=== PATIENT | female | born 1995 | race African-American/Black ===

== ENCOUNTER 2017-01-04 08:50 | Emergency (ER) | payer OTHER ==
[~2017-01-04] VITALS: Ht 175.3 cm; Wt 86.2 kg
[~2017-01-04 08:50] MED LIST: AZIT250T PO; BENZ100C PO; CETI1TAB7 PO; LORA10TA68 PO; NAPR500T PO; PRED50TA PO; PROAIR HFA8.5 GM INH; PROAIR RESPICL90 MCG IH
[2017-01-04 09:03] VITALS: BP 129/73
[2017-01-04] MEDS ORDERED: METOCLOPRAMIDE 10 MG TABLET. PO ONE (09:45)
[2017-01-04] MEDS ORDERED: predniSONE 10 MG TABLET PO ONE (09:45)
[2017-01-04] MEDS ORDERED: ALBUTEROL SULFATE 2.5 MG/3 ML NEBU. INH ONE (09:45)
[2017-01-04] MEDS ORDERED: PRED50TA PO (10:04)
[2017-01-04] MEDS ORDERED: ALBU0.63 NEB (10:04)
[2017-01-04] MEDS ORDERED: VENTOLIN HFA18 GM INH (10:04)
--- NOTE | 2017-01-04 10:04 | PHYS DOC ---
Past Medical History Past Medical History: Asthma Past Surgical History: No Surgical History Alcohol Use: None Drug Use: None Adult General Chief Complaint Chief Complaint: COUGH HPI HPI Patient is a 21 year old female who presents with asthma exacerbation. The patient reports 2 day history of cough productive of yellow sputum, wheezing, shortness of breath, 1 episode posttussive emesis. She reports generalized headache not sudden in onset & not the worst headache of her life. She is 5 months , denies abdominal pain, vaginal bleeding, loss of fluid, dysuria. Her OB is Dr. Ang. She has history of asthma with previous hospital admissions including ICU admission without intubation, has been using inhaler at home but states it is proair which is less helpful than ventolin which she used previously. Nonsmoker. Review of Systems Review of Systems Constitutional: Denies fever or chills Eyes: Denies change in visual acuity HENT: Denies nasal congestion or sore throat Respiratory: Reports cough & shortness of breath Cardiovascular: Denies chest pain or edema GI: Denies abdominal pain, nausea, reports vomiting : Denies vaginal bleeding Musculoskeletal: Denies back pain or joint pain Integument: Denies rash Neurologic: Reports headache, denies focal weakness or sensory changes Current Medications Current Medications Current Medications Medications (Trade) Dose Ordered Sig/Felipe Start Time Stop Time Status Last Admin Dose Admin Albuterol Sulfate (Ventolin Neb Soln) 5 mg 1X ONCE 01/04/17 09:45 01/04/17 09:46 DC 01/04/17 09:45 5 MG Metoclopramide HCl (Reglan) 10 mg 1X ONCE 01/04/17 09:45 01/04/17 09:46 DC 01/04/17 09:21 10 MG Prednisone (Prednisone) 50 mg 1X ONCE 01/04/17 09:45 01/04/17 09:46 DC 01/04/17 09:21 50 MG Allergies Allergies Allergies Coded Allergies Type Severity Reaction Last Updated Verified No Known Drug Allergies 02/23/16 No Physical Exam Physical Exam Constitutional: Well developed, well nourished, no acute distress, non-toxic appearance. HENT: Normocephalic, atraumatic, bilateral external ears normal, oropharynx moist, no tonsillar enlargement/exudate, nose normal. Eyes: PERRLA, EOMI, conjunctiva normal, no discharge. Neck: supple, no stridor. no meningismus Cardiovascular: RRR, no murmurs, no edema. Lungs & Thorax: breath sounds in all lung [place], tight with expiratory wheezes , no respiratory distress, speaking in complete sentences, frequent dry cough. Abdomen: soft, nontender, nondistended. Skin: Warm, dry, no erythema, no rash. Back: No tenderness. Extremities: No tenderness, no edema. no calf tenderness or swelling. Neurologic: Alert and oriented X 3, no focal deficits noted. Psychologic: Affect normal, judgement normal, mood normal. Current Patient Data Vital Signs Vital Signs Date Time Temp Pulse Resp B/P (MAP) Pulse Ox O2 Delivery O2 Flow Rate FiO2 01/04/17 09:03 98.0 93 24 97 Room Air 98.0 EKG EKG [] Radiology/Procedures Radiology/Procedures [] Course & Med Decision Making Course & Med Decision Making Pertinent Labs and Imaging studies reviewed. (See chart for details) The patient presents with asthma exacerbation in . She has normal oxygen saturation, no distress. Discussed risks/benefits with patient, gave prednisone here. I ordered albuterol inhaler but was informed that there was a miscommunication with the respiratory therapist & the patient left after prolonged wait for albuterol, without receiving breathing treatments. She was stable throughout her visit. I had given RN paperwork including prednisone, ventolin, & albuterol neb refill prescriptions & discharge instructions, & these were given to the patient with instructions to continue breathing treatments, tylenol for pain or fever, follow up with Dr. Ang as scheduled this week. Come back for severe shortness of breath or chest pain, or any otherwise worsening condition. She was in stable condition at time of departure although did not receive the treatment recommended. [] Dragon Disclaimer Dragon Disclaimer This electronic medical record was generated, in whole or in part, using a voice recognition dictation system. Departure Departure Impression: Primary Impression: Asthma exacerbation Disposition: HOME, SELF-CARE Condition: IMPROVED Referrals: NO PCP (PCP) RASHAD ANG MD Patient Instructions: Asthma, Adult, [id number] Additional Instructions: You were seen in the emergency department today for asthma. Please continue breathing treatments at home. Safety of prednisone is not fully understood in , but based on symptoms here it is recommended to take as prescribed. Check with Dr. Ang this week if you should continue to take. I keep scheduled follow-up appointment this week. Return to the emergency department for high fever, severe shortness of breath or chest pain, any otherwise worsening condition. Scripts Albuterol Sulfate (ALBUTEROL SULFATE NEB SOLN) 0.63 Mg/3 Ml Vial.neb 1 VIAL NEB QID, #150 ML 1 Refill Prov: STEFANI VITALE MD 01/04/17 Albuterol Sulfate (VENTOLIN HFA INHALER) 18 Gm Hfa.aer.ad 2 PUFF INH Q4HRS for FOR ASTHMA, #1 INHALER 0 Refills Prov: STEFANI VITALE MD 01/04/17 Prednisone (PREDNISONE) 50 Mg Tablet 1 TAB PO DAILY, #5 TAB Prov: STEFANI VITALE MD 01/04/17 STEFANI VITALE MD Jan 04, 2017 10:04
== END 2017-01-04 10:16 | disposition home or self-care (01) ==
LOC: ER 08:50
DX: O99.512 Diseases of the respiratory system complicating pregnancy, second trimester (principal); J45.901 Unspecified asthma with (acute) exacerbation; Z3A.20 20 weeks gestation of pregnancy
CPT/HCPCS: 94640; 99283; J7512; J8597

== ENCOUNTER 2017-01-11 12:45 | Emergency (ER) | payer OTHER ==
[~2017-01-11] VITALS: Ht 167.6 cm; Wt 92.5 kg
[~2017-01-11 12:45] MED LIST changes: +ALBU0.63 NEB; +VENTOLIN HFA18 GM INH
[2017-01-11 14:14] LABS: BILIRUBIN,URINE NEGATIVE (NEG); GLUCOSE,URINE NEGATIVE (NEG); NITRITE,URINE POSITIVE (NEG); PROTEIN,URINE 30 mg/dL (NEG-TRACE)
[2017-01-11] MEDS ORDERED: ACETAMINOPHEN 500 MG TABLET PO ONE (14:15)
[2017-01-11 14:41] LABS: BACTERIA,URINE MANY /HPF (0-FEW); RBC,URINE 0 /HPF (0-2); SQUAMOUS EPITHELIAL CELL,UR MOD /LPF
[2017-01-11] MEDS ORDERED: NITROFURANTOIN MONOHYD/M-CRYST 100 MG CAPSULE. PO ONE (14:45)
--- NOTE | 2017-01-11 14:53 | RAD ---
OB ULTRASOUND, limited Clinical Indication: abdominal pain 19 weeks Comparison: None. Technique: Multiple grayscale images, color Doppler, and M-mode images of the uterus are obtained. Findings: There is a single intrauterine gestation in vertex presentation. The placenta is anterior in location without evidence of placenta previa. The amount of amniotic fluid is probably appropriate. Amniotic fluid index is not measured. Cervical length is 4.1 cm. Biometrical data is as follows: BPD = 4.9 cm for 20 weeks 6 days. HC = 18.1 cm for 20 weeks 4 days. AC = 14.5 cm for 19 weeks 6 days. FL = 3.3 cm for 20 weeks 3 days. HC/AC ratio = 1.25. Overall, the estimated sonographic gestational age is 20 weeks and 3 days for an estimated date of delivery of May 28, 2017. The estimated date of delivery provided by the last menstrual period is May 26, 2017. Estimated weight is 338 +/- 50 grams. The estimated heart rate is 152 beats per minute. A complete anatomic survey is not performed. IMPRESSION: Single live intrauterine gestation with estimated sonographic gestational age of 20 weeks and 3 days.
[2017-01-11] MEDS ORDERED: NITR100C62 PO (15:11)
--- NOTE | 2017-01-11 15:11 | PHYS DOC ---
Past Medical History Past Medical History: Asthma Past Surgical History: No Surgical History Alcohol Use: None Drug Use: None Adult General Chief Complaint Chief Complaint: ABDOMINAL PAIN IN HPI HPI Patient is a 21 year old female who presents with abdominal pain in . Patient states she is 19w2d by dates with lower abdominal pain that feels like cramps or contractions. She reports intermittent pains since yesterday. She denies fevers/chills, nausea, vomiting, diarrhea, dysuria, hematuria, vaginal bleeding/discharge, loss of fluid. She denies headache, vision changes, lower extremity edema. Her OB is Dr. Ang. Seen by me last week for asthma exacerbation & states her breathing has improved. She had a follow up appointment with DR. Ang 2 days ago. Review of Systems Review of Systems Constitutional: Denies fever or chills Eyes: Denies change in visual acuity HENT: Denies nasal congestion or sore throat Respiratory: Denies cough or shortness of breath Cardiovascular: Denies chest pain or edema GI: Reports abdominal pain, denies nausea, vomiting, or diarrhea : Denies dysuria or hematuria Musculoskeletal: Denies back pain or joint pain Integument: Denies rash or skin lesions Neurologic: Denies headache, focal weakness or sensory changes Current Medications Current Medications Current Medications Medications (Trade) Dose Ordered Sig/Felipe Start Time Stop Time Status Last Admin Dose Admin Acetaminophen (Tylenol) 500 mg 1X ONCE 01/11/17 14:15 01/11/17 14:16 DC 01/11/17 14:09 500 MG Nitrofurantoin Macrocrystals (Macrobid) 100 mg 1X ONCE 01/11/17 14:45 01/11/17 14:46 DC 01/11/17 14:47 100 MG Allergies Allergies Allergies Coded Allergies Type Severity Reaction Last Updated Verified No Known Drug Allergies 02/23/16 No Physical Exam Physical Exam Constitutional: obese, no acute distress, non-toxic appearance. HENT: Normocephalic, atraumatic, bilateral external ears normal, oropharynx moist, nose normal. Eyes: conjunctiva normal, no discharge. Neck: supple, no stridor. Cardiovascular: RRR, no murmurs, no edema. Lungs & Thorax: LCTAB, no wheezing, no respiratory distress. Abdomen: soft, nontender, gravid uterus, mild suprapubic tenderness without rebound/guarding, no masses. Skin: Warm, dry, no erythema, no rash. Back: No CVA tenderness. Extremities: No tenderness, no edema. Neurologic: Alert and oriented X 3, no focal deficits noted. Psychologic: Affect normal, judgement normal, mood normal. Current Patient Data Vital Signs Vital Signs Date Time Temp Pulse Resp B/P (MAP) Pulse Ox O2 Delivery O2 Flow Rate FiO2 01/11/17 15:20 98.0 70 14 128/87 (101) 98 Room Air 98.0 Lab Values Laboratory Tests Test 01/11/17 13:55 Urine Collection Type Unknown Urine Color [place]ba Urine Clarity Cloudy Urine pH 6.0 Urine Specific [place] >=1.030 Urine Protein 30 mg/dL (NEG-TRACE) Urine Glucose (UA) Negative mg/dL (NEG) Urine Ketones (Stick) 40 mg/dL (NEG) Urine Blood Trace (NEG) Urine Nitrite Positive (NEG) Urine Bilirubin Negative (NEG) Urine Urobilinogen Dipstick 1.0 mg/dL (0.2 mg/dL) Urine Leukocyte Esterase Small (NEG) Urine RBC 0 /HPF (0-2) Urine WBC 5-10 /HPF (0-4) Urine Squamous Epithelial Cells Mod /LPF Urine Bacteria Many /HPF (0-FEW) Urine Mucus Mod /LPF EKG EKG [] Radiology/Procedures Radiology/Procedures PROCEDURE: OB LIMITED OB ULTRASOUND, limited Clinical Indication: abdominal pain 19 weeks Comparison: None. Technique: Multiple grayscale images, color Doppler, and M-mode images of the uterus are obtained. Findings: There is a single intrauterine gestation in vertex presentation. The placenta is anterior in location without evidence of placenta previa. The amount of amniotic fluid is probably appropriate. Amniotic fluid index is not measured. Cervical length is 4.1 cm. Biometrical data is as follows: BPD = 4.9 cm for 20 weeks 6 days. HC = 18.1 cm for 20 weeks 4 days. AC = 14.5 cm for 19 weeks 6 days. FL = 3.3 cm for 20 weeks 3 days. HC/AC ratio = 1.25. Overall, the estimated sonographic gestational age is 20 weeks and 3 days for an estimated date of delivery of May 28, 2017. The estimated date of delivery provided by the last menstrual period is May 26, 2017. Estimated weight is 338 +/- 50 grams. The estimated heart rate is 152 beats per minute. A complete anatomic survey is not performed. IMPRESSION: Single live intrauterine gestation with estimated sonographic gestational age of 20 weeks and 3 days. DICTATED and SIGNED BY: DOUGLAS KUMAR MD DATE: 01/11/17 1447[] Course & Med Decision Making Course & Med Decision Making Pertinent Labs and Imaging studies reviewed. (See chart for details) The patient presents with abdominal pain in . BP initially elevated, recheck showed 120s systolic with diastolic 80s. She had abdominal pain but no headache or edema. She has minimal tenderness on exam. Gave tylenol. UA shows UTI & she does have proteinuria. US shows IUP with FHT, gestational age over 20 weeks. Original EDC was based on patient's verbal report of due date. Recommended transfer to L&D for further monitoring of the fetus. The patient is being discharged upstairs for monitoring. Recommend rest, PO hydration, drink more fluids to prevent likely [place] contractions. Take tylenol for pain & take macrobid as prescribed. Follow up with Dr. Ang next week. Come back for high fever, severe pain, uncontrolled vomiting, symptoms of labor or preeclampsia, or any otherwise worsening condition. [] Dragon Disclaimer Dragon Disclaimer This electronic medical record was generated, in whole or in part, using a voice recognition dictation system. Departure Departure Impression: Primary Impression: UTI (lower urinary tract infection) Additional Impressions: related condition in second trimester Abdominal pain during Disposition: HOME, SELF-CARE Condition: STABLE Referrals: NO PCP (PCP) RASHAD ANG MD Patient Instructions: Abdominal Pain During , [id number], Urinary Tract Infection, [id number] Additional Instructions: You were seen in the emergency department today for abdominal pain and . You have a urinary tract infection. Please take the prescribed antibiotic and be sure to drink fluids to stay hydrated. Take Tylenol as needed for pain. You are being transferred to the OB department for further monitoring of your baby. Scripts Nitrofurantoin Monohyd/M-Cryst (MACROBID 100 MG CAPSULE) 100 Mg Capsule 1 CAP PO BID, #13 CAP next dose AM of 01/12, first dose given in ED afternoon of 01/11 Prov: STEFANI VITALE MD 01/11/17 Problem Qualifiers STEFANI VITALE MD Jan 11, 2017 15:11
[2017-01-11 15:20] VITALS: BP 128/87
== END 2017-01-11 15:23 | disposition home or self-care (01) ==
LOC: ER 12:45
DX: O23.42 Unspecified infection of urinary tract in pregnancy, second trimester (principal); R10.9 Unspecified abdominal pain; J45.909 Unspecified asthma, uncomplicated; Z3A.20 20 weeks gestation of pregnancy
CPT/HCPCS: 76815; 81001; 87086; 99285-25

== ENCOUNTER 2017-01-11 15:26 | Observation (INO) | payer OTHER ==
[2017-01-11 15:20] VITALS: BP 128/87
[~2017-01-11 15:26] MED LIST changes: +NITR100C62 PO
[2017-01-11] MEDS ORDERED: IV RINGERS,LACTATED 1000ML 1,000 ML IV SCH (15:54)
== END 2017-01-11 16:00 | disposition home or self-care (01) ==
LOC: 3 SO LND 15:26
PROVIDERS: ADMIT Specialist; ATTEND Specialist
DX: O23.42 Unspecified infection of urinary tract in pregnancy, second trimester (principal); Z3A.19 19 weeks gestation of pregnancy
CPT/HCPCS: G0378; G0379

== ENCOUNTER 2017-01-15 11:10 | Emergency (ER) | payer OTHER ==
[~2017-01-15] VITALS: Ht 167.6 cm; Wt 92.5 kg
[2017-01-15 11:18] VITALS: BP 138/102
[2017-01-15] MEDS ORDERED: IPRATRPIUM/ALBUTEROL 0.5/2.5MG 3 ML NEBU. NEB ONE (11:45)
[2017-01-15] MEDS ORDERED: predniSONE 20 MG TABLET PO ONE (11:45)
[2017-01-15] MEDS ORDERED: PROAIR RESPICL90 MCG IH (12:23)
[2017-01-15] MEDS ORDERED: ALBU1.25 NEB (12:23)
[2017-01-15] MEDS ORDERED: PRED50TA PO (12:23)
--- NOTE | 2017-01-15 12:23 | PHYS DOC ---
Past Medical History Past Medical History: Asthma Past Surgical History: No Surgical History Alcohol Use: None Drug Use: None Adult General Chief Complaint Chief Complaint: ASTHMA HPI HPI Patient is a 21 year old female with history of asthma currently 5 months who presents today with complaints of shortness of breath due to asthma and wheezing that began last night. Patient states she tried using her nebulizer treatments with no relief. Patient is a 2 para 1. Patient denies any abdominal pain vaginal bleeding urgency frequency or dysuria. Review of Systems Review of Systems Constitutional: Denies fever or chills [] Eyes: Denies change in visual acuity, redness, or eye pain [] HENT: Denies nasal congestion or sore throat [] Respiratory: Shortness of breath and wheezing Cardiovascular: No additional information not addressed in HPI [] GI: Denies abdominal pain, nausea, vomiting, bloody stools or diarrhea [] : Denies dysuria or hematuria [] Musculoskeletal: Denies back pain or joint pain [] Integument: Denies rash or skin lesions [] Neurologic: Denies headache, focal weakness or sensory changes [] Endocrine: Denies polyuria or polydipsia [] Current Medications Current Medications Current Medications Medications (Trade) Dose Ordered Sig/Felipe Start Time Stop Time Status Last Admin Dose Admin Albuterol/ Ipratropium (Duoneb) 3 ml 1X ONCE 01/15/17 11:45 01/15/17 11:46 DC 01/15/17 11:42 3 ML Prednisone (Prednisone) 60 mg 1X ONCE 01/15/17 11:45 01/15/17 11:46 DC 01/15/17 11:56 60 MG Allergies Allergies Allergies Coded Allergies Type Severity Reaction Last Updated Verified No Known Drug Allergies 02/23/16 No Physical Exam Physical Exam Constitutional: Well developed, well nourished, no acute distress, non-toxic appearance. [] HENT: Normocephalic, atraumatic, bilateral external ears normal, oropharynx moist, no oral exudates, nose normal. [] Eyes: PERRLA, EOMI, conjunctiva normal, no discharge. [] Neck: Normal range of motion, no tenderness, supple, no stridor. [] Cardiovascular:Heart rate regular rhythm, no murmur [] Lungs & Thorax: Diffuse wheezing throughout her lung bases. Abdomen: Gravid abdomen. Bowel sounds normal, soft, no tenderness, no masses, no pulsatile masses. [] Skin: Warm, dry, no erythema, no rash. [] Back: No tenderness, no CVA tenderness. [] Extremities: No tenderness, no cyanosis, no clubbing, ROM intact, no edema. [] Neurologic: Alert and oriented X 3, normal motor function, normal sensory function, no focal deficits noted. [] Psychologic: Affect normal, judgement normal, mood normal. [] Current Patient Data Vital Signs Vital Signs Date Time Temp Pulse Resp B/P (MAP) Pulse Ox O2 Delivery O2 Flow Rate FiO2 01/15/17 11:43 97 Room Air 01/15/17 11:18 98.4 111 24 98.4 EKG EKG [] Radiology/Procedures Radiology/Procedures [] Course & Med Decision Making Course & Med Decision Making Pertinent Labs and Imaging studies reviewed. (See chart for details) This is a 5 month female patient 2 para 1 who presents today with wheezing and shortness of breath due to asthma that began last night. Patient was given a DuoNeb treatment and prednisone in the ED. Her lungs have cleared up. She is back to her baseline. We provided her prescriptions for albuterol inhaler as well as nebulizer treatments. She was discharged with prednisone for 4 more days. We recommended she follows up with her OB as well as PCP as soon as possible. She is provided return precautions and discharged in stable condition. Dragon Disclaimer Dragon Disclaimer This electronic medical record was generated, in whole or in part, using a voice recognition dictation system. Departure Departure Impression: Primary Impression: Asthma exacerbation Disposition: 01 HOME, SELF-CARE Condition: STABLE Referrals: NO PCP (PCP) DUKE MEAD MD Follow-up with your [facility] and primary care doctor in the next 1-7 days. Patient Instructions: Asthma, Adult Additional Instructions: You were seen for an asthma exacerbation. Use the prescribed medications as ordered. Follow-up with the [facility] as well as primary care doctor as soon as possible. Come back to the ED if symptoms worsen Scripts Prednisone (PREDNISONE) 50 Mg Tablet 1 TAB PO DAILY, #4 TAB Prov: DEBORAH COTO APRN 01/15/17 Albuterol Sulfate (ALBUTEROL SULFATE NEB SOLN) 1.25 Mg/3 Ml Vial.neb 1 VIAL NEB Q4HRS, #75 ML Prov: DEBORAH COOT APRN 01/15/17 Albuterol Sulfate (Proair Respiclick) 90 Mcg Aer.pow.ba 1 PUFF IH PRN Q6HRS Y for SHORTNESS OF BREATH, #1 INHALER Prov: DEBORAH COTO APRN 01/15/17 DEBORAH COTO APRN Jan 15, 2017 12:23
== END 2017-01-15 12:37 | disposition home or self-care (01) ==
LOC: ER 11:10
DX: O99.512 Diseases of the respiratory system complicating pregnancy, second trimester (principal); J45.901 Unspecified asthma with (acute) exacerbation; Z3A.20 20 weeks gestation of pregnancy; Z79.899 Other long term (current) drug therapy
CPT/HCPCS: 94640; 99283; J7512; J7620

== ENCOUNTER 2017-01-26 10:11 | Emergency (ER) | payer OTHER ==
[~2017-01-26] VITALS: Ht 167.6 cm; Wt 92.5 kg
[~2017-01-26 10:11] MED LIST changes: +ALBU1.25 NEB
[2017-01-26 10:23] VITALS: BP 135/75
[2017-01-26] MEDS ORDERED: predniSONE 20 MG TABLET PO ONE (10:30)
[2017-01-26] MEDS ORDERED: IPRATRPIUM/ALBUTEROL 0.5/2.5MG 3 ML NEBU. NEB ONE (10:30)
--- NOTE | 2017-01-26 10:35 | PHYS DOC ---
Past Medical History Past Medical History: Asthma Past Surgical History: No Surgical History Alcohol Use: None Drug Use: None Adult General Chief Complaint Chief Complaint: ASTHMA HPI HPI Patient is a 21 year old female presents to the emergency department stating that she's been short of air and wheezing for the last few hours. She states that it started around 5:00 this morning. She states that she used her albuterol inhaler and her nebulizer machine without success. Patient does states she has a history of asthma was seen here on January 15 for asthma exacerbation at that time she was provided with albuterol nebulizer medication as well as a albuterol inhaler. Patient was then placed on prednisone. Patient is also 22 weeks . Patient denies any vaginal discharge or any difficulty with the at this time. Review of Systems Review of Systems Constitutional: Denies fever or chills [] Eyes: Denies change in visual acuity, redness, or eye pain [] HENT: Denies nasal congestion or sore throat [] Respiratory: Denies cough complaint of shortness of breath [] Cardiovascular: No additional information not addressed in HPI [] GI: Denies abdominal pain, nausea, vomiting, bloody stools or diarrhea [] : Denies dysuria or hematuria [] Musculoskeletal: Denies back pain or joint pain [] Integument: Denies rash or skin lesions [] Neurologic: Denies headache, focal weakness or sensory changes [] Endocrine: Denies polyuria or polydipsia [] Current Medications Current Medications Current Medications Medications (Trade) Dose Ordered Sig/Felipe Start Time Stop Time Status Last Admin Dose Admin Albuterol/ Ipratropium (Duoneb) 3 ml 1X ONCE 01/26/17 10:30 01/26/17 10:31 DC 01/26/17 10:35 3 ML Prednisone (Prednisone) 40 mg 1X ONCE 01/26/17 10:30 01/26/17 10:31 DC 01/26/17 10:33 40 MG Allergies Allergies Allergies Coded Allergies Type Severity Reaction Last Updated Verified No Known Drug Allergies 02/23/16 No Physical Exam Physical Exam Constitutional: Well developed, well nourished, no acute distress, non-toxic appearance. [] HENT: Normocephalic, atraumatic, bilateral external ears normal, oropharynx moist, no oral exudates, nose normal. [] Eyes: PERRLA, EOMI, conjunctiva normal, no discharge. [] Neck: Normal range of motion, no tenderness, supple, no stridor. [] Cardiovascular:Heart rate regular rhythm, no murmur [] Lungs & Thorax: Bilateral breath sounds wheezes noted throughout anteriorly and posteriorly Skin: Warm, dry, no erythema, no rash. [] Back: No tenderness Extremities: No tenderness, no cyanosis, no clubbing, ROM intact, no edema. [] Neurologic: Alert and oriented X 3, normal motor function, normal sensory function, no focal deficits noted. [] Psychologic: Affect normal, judgement normal, mood normal. [] Current Patient Data Vital Signs Vital Signs Date Time Temp Pulse Resp B/P (MAP) Pulse Ox O2 Delivery O2 Flow Rate FiO2 01/26/17 10:23 98.1 106 18 97 Room Air 98.1 EKG EKG [] Radiology/Procedures Radiology/Procedures [] Course & Med Decision Making Course & Med Decision Making Pertinent Labs and Imaging studies reviewed. (See chart for details) Patient provided with a DuoNeb treatment here in the emergency department. She' ll be provided with prednisone here in the emergency department as well. Breath sounds are clear at this time. Spoke with patient in regards to prednisone at home and using her albuterol inhaler as well as nebulizer medication. Patient states she is out of her nebulizer medication in which she was provided a refill on January 15. Spoke with patient regards to using medications appropriately as if they are used more frequently can actually cause more harm than good. Patient states understanding. Boyfriend at the bedside agrees with the discharge instructions as well. Both patient and boyfriend will be discharged home in stable condition signs and symptoms to return back to emergency department as been provided. [] Dragon Disclaimer Dragon Disclaimer This electronic medical record was generated, in whole or in part, using a voice recognition dictation system. Departure Departure Impression: Primary Impression: Asthma exacerbation Disposition: HOME, SELF-CARE Condition: STABLE Referrals: NO PCP (PCP) Patient Instructions: Asthma, Adult, [id number] Additional Instructions: Activity as tolerated. Medication as prescribed. Usual albuterol and your nebulizer medication as prescribed. Do not use them any more frequently than as prescribed as this will do more harm than good. Follow-up with her primary care physician or an asthma specialist for continuation of your care. Return back to the emergency department for signs and symptoms of become worse. Scripts Prednisone (PREDNISONE) 20 Mg Tablet 40 MG PO DAILY for 7 Days, #14 TAB Prov: NETTA SIERRA APRN 01/26/17 Ipratropium/Albuterol Sulfate (DUONEB 0.5-3(2.5) MG/3 ML) 3 Ml Ampul.neb 3 ML NEB QID, #0.5 EACH Prov: NETTA SIERRA APRN 01/26/17 NETTA SIERRA APRN Jan 26, 2017 10:35
[2017-01-26] MEDS ORDERED: IPRA3AMP NEB (11:24)
[2017-01-26] MEDS ORDERED: PRED20TA PO (11:25)
== END 2017-01-26 11:37 | disposition home or self-care (01) ==
LOC: ER 10:11
DX: O99.512 Diseases of the respiratory system complicating pregnancy, second trimester (principal); J45.901 Unspecified asthma with (acute) exacerbation; Z3A.22 22 weeks gestation of pregnancy; Z79.899 Other long term (current) drug therapy
CPT/HCPCS: 94640; 99283; J7512; J7620

== ENCOUNTER 2017-04-16 20:33 | Emergency (ER) | payer OTHER ==
[~2017-04-16] VITALS: Ht 167.6 cm; Wt 96.2 kg
[~2017-04-16 20:33] MED LIST changes: +IPRA3AMP NEB; +PRED20TA PO
[2017-04-16 20:45] VITALS: BP 122/81
[2017-04-16] MEDS ORDERED: PROAIR HFA8.5 GM INH (21:13)
--- NOTE | 2017-04-16 21:13 | PHYS DOC ---
Past Medical History Past Medical History: Asthma Past Surgical History: No Surgical History Additional Information: non smoker Alcohol Use: None Drug Use: None Adult General Chief Complaint Chief Complaint: SHORTNESS OF BREATH HPI HPI Patient is a 21 year old FEMALE who presents with lower abdominal cramping for one week and increased cough and wheezing. She is a G2, P1, LC1 who has an EDC 05/26/17 and is 34 weeks . She states that the lower cramping has been intermittent. NO vaginal bleeding or leak of fluid. She is also cough; no fever. Non productive cough. She has increased wheezing. She has asthma and is out of her inhaler. No tobacco use. No leg pain or swelling. She is "short of air" when she coughs. Review of Systems Review of Systems Constitutional: Denies fever or chills Eyes: Denies change in visual acuity, redness, or eye pain HENT: Denies nasal congestion or sore throat Respiratory: POS cough, wheezing, shortness of breath Cardiovascular: No chest pain GI: POS abdominal pain, NO nausea, vomiting, bloody stools or diarrhea : Denies dysuria or hematuria; NO vaginal bleeding. POS . Musculoskeletal: Denies back pain or joint pain Integument: Denies rash or skin lesions Neurologic: Denies headache, focal weakness or sensory changes Current Medications Current Medications Current Medications Medications (Trade) Dose Ordered Sig/Felipe Start Time Stop Time Status Last Admin Dose Admin Albuterol/ Ipratropium (Duoneb) 3 ml 1X ONCE 04/16/17 21:30 04/16/17 21:31 Allergies Allergies Allergies Coded Allergies Type Severity Reaction Last Updated Verified No Known Drug Allergies 02/23/16 No Physical Exam Physical Exam Constitutional: Well developed, well nourished, no acute distress, non-toxic appearance. HENT: Normocephalic, atraumatic, bilateral external ears normal, oropharynx moist, no oral exudates, nose normal. Eyes: PERRLA, EOMI, conjunctiva normal, no discharge. Neck: Normal range of motion, no tenderness, supple, no stridor. Cardiovascular:Heart rate regular rhythm, no murmur Lungs & Thorax: Bilateral breath sounds with wheezing; good air flow. Abdomen: Bowel sounds normal, soft, no tenderness to palpation, no masses, no pulsatile masses. Gravid. Skin: Warm, dry, no erythema, no rash. Back: No tenderness, no CVA tenderness. Extremities: No tenderness, no cyanosis, no clubbing, ROM intact, no edema. Neurologic: Alert and oriented X 3, normal motor function, normal sensory function, no focal deficits noted. [] Current Patient Data Vital Signs Vital Signs Date Time Temp Pulse Resp B/P (MAP) Pulse Ox O2 Delivery O2 Flow Rate FiO2 04/16/17 20:45 98.1 94 22 122/81 (95) 99 Room Air 98.1 Course & Med Decision Making Course & Med Decision Making Evaluated patient upon my arrival on shift. She is 34 weeks with EDC . SHE IS HAVING LOWER ABDOMINAL CRAMPING FOR ONE WEEK; NO VAGINAL BLEEDING OR LEAK OF FLUID. She is out of her inhaler and having increased coughing and wheezing. Given duoneb here and discharged to OB FOR MONITORING. RX: INHALER WRITTEN Dragon Disclaimer Dragon Disclaimer This electronic medical record was generated, in whole or in part, using a voice recognition dictation system. Departure Departure Impression: Primary Impression: Asthma exacerbation Disposition: 01 HOME, SELF-CARE (to ob) Condition: GOOD Referrals: NO PCP (PCP) Patient Instructions: Asthma, Adult Additional Instructions: YOU WERE GIVEN A TREATMENT HERE AND A SCRIPT FOR INHALER. YOU ARE DISCHARGED FROM THE ED TO THE OB FOR MONITORING FOR YOUR LOWER ABDOMINAL CRAMPING Scripts Albuterol Sulfate (PROAIR HFA INHALER) 8.5 Gm Hfa.aer.ad 1 PUFF INH PRN Q6HRS Y for SHORTNESS OF BREATH, #1 INHALER 0 Refills Prov: GILBERT QUAN MD 04/16/17 GILBERT QUAN MD Apr 16, 2017 21:13
[2017-04-16] MEDS ORDERED: IPRATRPIUM/ALBUTEROL 0.5/2.5MG 3 ML NEBU. NEB ONE (21:30)
== END 2017-04-16 22:30 | disposition home or self-care (01) ==
LOC: ER 20:33
DX: O99.513 Diseases of the respiratory system complicating pregnancy, third trimester (principal); J45.901 Unspecified asthma with (acute) exacerbation; Z3A.34 34 weeks gestation of pregnancy
CPT/HCPCS: 94250; 94640; 99283; J7620

== ENCOUNTER 2017-04-16 22:09 | Observation (INO) | payer OTHER ==
[2017-04-16 20:45] VITALS: BP 122/81
[2017-04-16] MEDS ORDERED: IV RINGERS,LACTATED 1000ML 1,000 ML IV SCH (22:30)
[2017-04-16 22:50] LABS: BILIRUBIN,URINE NEGATIVE (NEG); GLUCOSE,URINE NEGATIVE (NEG); NITRITE,URINE NEGATIVE (NEG); PH,URINE 6.5; PROTEIN,URINE NEGATIVE (NEG-TRACE)
[2017-04-16 22:58] LABS: BARBITURATES NEG (NEG); BENZODIAZEPINES NEG (NEG); CANNABINOIDS NEG (NEG); COCAINE NEG (NEG); METHADONE NEG (NEG); OPIATES NEG (NEG); PHENCYCLIDINE NEG (NEG)
[2017-04-16 23:00] LABS: BACTERIA,URINE MODERATE /HPF (0-FEW); RBC,URINE OCC /HPF (0-2); SQUAMOUS EPITHELIAL CELL,UR MOD /LPF
== END 2017-04-16 23:55 | disposition home or self-care (01) ==
LOC: 3 SO LND 22:09
PROVIDERS: ADMIT Specialist; ATTEND Specialist
DX: O26.893 Other specified pregnancy related conditions, third trimester (principal); R10.9 Unspecified abdominal pain; O99.513 Diseases of the respiratory system complicating pregnancy, third trimester; J45.909 Unspecified asthma, uncomplicated; Z3A.34 34 weeks gestation of pregnancy
CPT/HCPCS: 80307; 81001; G0378; G0379; G0479

== ENCOUNTER 2017-06-27 23:48 | Emergency (ER) | payer OTHER ==
[~2017-06-27] VITALS: Ht 167.6 cm; Wt 88.0 kg
[~2017-06-27 23:48] MED LIST changes: +NAPR-683 PO; -NAPR500T PO
[2017-06-27 23:49] VITALS: BP 150/71
--- NOTE | 2017-06-28 00:05 | PHYS DOC ---
Past Medical History Past Medical History: Asthma Past Surgical History: No Surgical History Additional Information: Non smoker Alcohol Use: None Drug Use: None Adult General Chief Complaint Chief Complaint: SHORTNESS OF BREATH HPI HPI Patient is a 22 year old female who presents with wheezing. She has asthma and is out of her meds for her nebulizer. She states she worsened yesterday. No fever. Cough but non productive; no hemoptysis. She is post 05/12/17; not breast feeding. She denies any leg pain or swelling. Does not smoke tobacco. No chest pain. Review of Systems Review of Systems Constitutional: Denies fever or chills Eyes: Denies change in visual acuity, redness, or eye pain HENT: POS nasal congestion but no sore throat Respiratory: POS cough and shortness of breath and wheezing. Cardiovascular: No chest pain GI: Denies abdominal pain, nausea, vomiting, bloody stools or diarrhea : Denies dysuria or hematuria Musculoskeletal: Denies back pain or joint pain Integument: Denies rash or skin lesions Neurologic: Denies headache, focal weakness or sensory changes All other systems were reviewed and found to be within normal limits, except as documented in this note. Current Medications Current Medications Current Medications Medications (Trade) Dose Ordered Sig/Felipe Start Time Stop Time Status Last Admin Dose Admin Albuterol/ Ipratropium (Duoneb) 3 ml 1X ONCE 06/28/17 00:30 06/28/17 00:31 DC 06/28/17 00:19 3 ML Info (Do NOT chart on this entry -- for MONITORING) 1 each PRN DAILY PRN 06/28/17 01:00 06/30/17 00:59 Iohexol (Omnipaque 300 Mg/ml) 75 ml 1X ONCE 06/28/17 01:30 06/28/17 01:31 DC Methylprednisolone Sodium Succinate (SOLU-Medrol 125MG VIAL) 125 mg 1X ONCE 06/28/17 00:30 06/28/17 00:31 DC 06/28/17 00:18 125 MG Sodium Chloride 1,000 ml @ 1,000 mls/hr Q1H 06/28/17 00:30 06/28/17 01:29 DC 06/28/17 00:19 1,000 MLS/HR Allergies Allergies Allergies Coded Allergies Type Severity Reaction Last Updated Verified No Known Drug Allergies 02/23/16 No Physical Exam Physical Exam Constitutional: Well developed, well nourished, no acute distress, non-toxic appearance. HENT: Normocephalic, atraumatic, bilateral external ears normal, oropharynx moist, no oral exudates, nose normal. Eyes: PERRLA, EOMI, conjunctiva normal, no discharge. Neck: Normal range of motion, no tenderness, supple, no stridor. Cardiovascular:Heart rate regular rhythm, no murmur Lungs & Thorax: Diffuse wheezing throughout. Abdomen: Bowel sounds normal, soft, no tenderness, no masses, no pulsatile masses. Skin: Warm, dry, no erythema, no rash. Back: No tenderness, no CVA tenderness. Extremities: No tenderness, no cyanosis, no clubbing, ROM intact, no edema. NO calf pain, swelling or tenderness. Neurologic: Alert and oriented X 3, normal motor function, normal sensory function, no focal deficits noted. Current Patient Data Vital Signs Vital Signs Date Time Temp Pulse Resp B/P (MAP) Pulse Ox O2 Delivery O2 Flow Rate FiO2 06/28/17 00:23 94 Room Air 06/27/17 23:49 98.3 85 26 150/71 (97) 98.3 Lab Values Laboratory Tests Test 06/28/17 00:05 White Blood Count 8.5 x10^3/uL (4.0-11.0) Red Blood Count 5.46 x10^6/uL (3.50-5.40) H Hemoglobin 13.5 g/dL (12.0-15.5) Hematocrit 42.4 % (36.0-47.0) Mean Corpuscular Volume 78 fL (79-100) L Mean Corpuscular Hemoglobin 25 pg (25-35) Mean Corpuscular Hemoglobin Concent 32 g/dL (31-37) Red Cell Distribution Width 13.5 % (11.5-14.5) Platelet Count 281 x10^3/uL (140-400) Neutrophils (%) (Auto) 43 % (31-73) Lymphocytes (%) (Auto) 40 % (24-48) Monocytes (%) (Auto) 5 % (0-9) Eosinophils (%) (Auto) 11 % (0-3) H Basophils (%) (Auto) 1 % (0-3) Neutrophils # (Auto) 3.7 x10^3uL (1.8-7.7) Lymphocytes # (Auto) 3.4 x10^3/uL (1.0-4.8) Monocytes # (Auto) 0.4 x10^3/uL (0.0-1.1) Eosinophils # (Auto) 0.9 x10^3/uL (0.0-0.7) H Basophils # (Auto) 0.1 x10^3/uL (0.0-0.2) D-Dimer (Josefina) 1.35 ug/mlFEU (0.00-0.50) H Urine Collection Type Unknown Urine Color Yellow Urine Clarity Clear Urine pH 6.0 Urine Specific [place] 1.025 Urine Protein Negative mg/dL (NEG-TRACE) Urine Glucose (UA) Negative mg/dL (NEG) Urine Ketones (Stick) Negative mg/dL (NEG) Urine Blood Negative (NEG) Urine Nitrite Negative (NEG) Urine Bilirubin Negative (NEG) Urine Urobilinogen Dipstick 1.0 mg/dL (0.2 mg/dL) Urine Leukocyte Esterase Small (NEG) Urine RBC 0 /HPF (0-2) Urine WBC 5-10 /HPF (0-4) Urine Squamous Epithelial Cells Many /LPF Urine Bacteria Few /HPF (0-FEW) Urine Mucus Marked /LPF POC Urine HCG, Qualitative Hcg negative (Negative) Sodium Level 139 mmol/L (136-145) Potassium Level 4.2 mmol/L (3.5-5.1) Chloride Level 103 mmol/L (98-107) Carbon Dioxide Level 26 mmol/L (21-32) Anion Gap 10 (6-14) Blood Urea Nitrogen 10 mg/dL (7-20) Creatinine 0.8 mg/dL (0.6-1.0) Estimated GFR (Cockcroft-Gault) 108.5 BUN/Creatinine Ratio 13 (6-20) Glucose Level 100 mg/dL (70-99) H Calcium Level 8.9 mg/dL (8.5-10.1) Total Bilirubin 0.3 mg/dL (0.2-1.0) Aspartate Amino Transferase (AST) 20 U/L (15-37) Alanine Aminotransferase (ALT) 16 U/L (14-59) Alkaline Phosphatase 124 U/L (46-116) H Troponin I Quantitative < 0.017 ng/mL (0.000-0.055) IM-Jeo-S-Type Natriuretic Peptide 7 pg/mL (0-124) Total Protein 7.6 g/dL (6.4-8.2) Albumin 3.5 g/dL (3.4-5.0) Albumin/Globulin Ratio 0.9 (1.0-1.7) L Influenza Type A Antigen Negative (NEGATIVE) Influenza Type B Antigen Negative (NEGATIVE) Laboratory Tests 06/28/17 00:05 Laboratory Tests 06/28/17 00:05 Radiology/Procedures Radiology/Procedures CXR interpreted by myself at 0055 am: no acute infiltrate. [facility] [address] [place] [address] IMAGING REPORT Signed PATIENT: MARIA ELENA WILKES ACCOUNT: [id number] : 1995 LOCATION: ER AGE: 22 SEX: F EXAM STATUS: REG ER ORD. PHYSICIAN: GILBERT QUAN MD REASON: ELEV D DIMER; POST ; SOA PROCEDURE: CT ANGIOGRAPHY CHEST INDICATION: ELEVATED D DIMER SOA INJ 75ML OMNI 300 NO PREV NO SURGERIES COMPARISON: None. TECHNIQUE: Axial CT images obtained through the chest. Intravenous contrast utilized. Angiogram 3D images processed per protocol. One or more of the following individualized dose reduction techniques were utilized for this examination: 1. Automated exposure control; 2. Adjustment of the mA and/or kV according to patient size; 3. Use of iterative reconstruction technique. FINDINGS: There is some mosaic attenuation in the lungs. There are couple of sub-4 mm nodules but likely benign given the patient's age. There are some regions of mild peribronchial thickening. No definite lobar infiltrate. The proximal thoracic aorta is obscured by motion but no definite aneurysm elsewhere within the thoracic aorta. Soft tissue density in anterior mediastinum. Most common cause is residual thymus given patient's age. No embolus in main, right main or left main pulmonary artery but patient motion obscures peripheral vessels IMPRESSION: 1. No embolus is seen in the main, right main or left main pulmonary artery. There is a large amount of patient motion which obscures peripheral vessels. 2. There are some regions of air trapping as well as groundglass opacities in the lungs and peribronchial thickening. Would correlate for possible causes such as bronchitis or small airway disease. Electronically signed by: Beatriz Vail MD (06/28/2017 2:15 AM) [facility] [id number] DICTATED and SIGNED BY: BEATRIZ VAIL MD DATE: 06/28/17 014 CC: GILBERT QUAN MD; NO PCP ~ Course & Med Decision Making Course & Med Decision Making Evaluated patient upon arrival by EMS. still with wheezing. Influenza sent. Duoneb. Solumedrol 125 IV. Recent post but not breast feeding. D dimer checked as well. At 0045 am: D dimer is elevated; Cr is normal. Lab otherwise unremarkable and influenza negative. UCG negative. CT angio ordered to r/o PE. At 0105 am: To CT. At [address] results back. NO PE but some ground glass opacities c/w bronchitis. Will discharge home with steroids; duoneb for nebulizer and Azithromax. Patient much improved at discharge. I have spoken with the patient and/or caregivers. I have explained the patient' s condition, diagnosis and treatment plan based on the information available to me at this time. I have answered the patient's and/or caregiver's questions and addressed any concerns. The patient and/or caregivers have as good an understanding of the patient's diagnosis, condition and treatment plan as can be expected at this point. The patient's condition is stable and appropriate for discharge from the emergency department. The patient will pursue further outpatient evaluation with the primary care physician or other designated or consulting physician as outlined in the discharge instructions. The patient and/or caregivers are agreeable to this plan of care and follow-up instructions have been explained in detail. The patient and/or caregivers have received these instructions in written format and have expressed an understanding of the discharge instructions. The patient and/or caregivers are aware that any significant change in condition or worsening of symptoms should prompt an immediate return to this or the closest emergency department or a call to 911. Differential diagnosis includes but not limited to: Acute myocardial ischemia, heart failure, cardiac tamponade, bronchospasm, pulmonary embolism, pneumothorax , pulmonary infection i.e. bronchitis or pneumonia, upper airway obstruction, anaphylaxis, aspiration, psychogenic, pulmonary contusion, toxidrome, pneumomediastinum, noncardiogenic pulmonary edema or ARDS, COPD, tuberculosis, cystic fibrosis, asthma, high altitude pulmonary edema, valvular dysfunction, cardiac dysrhythmia, stroke, neuromuscular diseases like myasthenia gravis gravis, ALS, Guillain-Mitchell syndrome, metabolic acidosis to include diabetic ketoacidosis, sepsis, and obstructive disorders like massive obesity Dragon Disclaimer Dragon Disclaimer This electronic medical record was generated, in whole or in part, using a voice recognition dictation system. Departure Departure Impression: Primary Impression: Asthma exacerbation Additional Impressions: Cough Bronchitis Disposition: HOME, SELF-CARE Condition: STABLE Referrals: NO PCP (PCP) Patient Instructions: Asthma Attacks, Prevention, Asthma, Acute Bronchospasm Additional Instructions: YOU DID NOT HAVE A BLOOD CLOT IN YOUR LUNGS. YOU WERE GIVEN STEROIDS TONIGHT AND YOUR FIRST DOSE OF ANTIBIOTICS. FOLLOW UP NEXT WEEK. Scripts Azithromycin (AZITHROMYCIN TABLET) 250 Mg Tablet 250 MG PO DAILY for ANTI-BIOTIC, #4 TAB 0 Refills fIRST DOSE GIVEN IN THE ER Prov: GILBERT QUAN MD 06/28/17 Prednisone (PREDNISONE) 10 Mg Tablet 10 MG PO UD for PREDNISONE TAPER, #39 TAB 0 Refills Take 3 tablets by mouth twice a day for 3 days, then take 2 tablets by mouth twice a day for 3 days, then take 1 tablet by mouth twice a day for 3 days, then take 1 tablet by mouth daily x 3 days, then stop. Prov: GILBERT QUAN MD 06/28/17 Ipratropium/Albuterol Sulfate (DUONEB 0.5-3(2.5) MG/3 ML) 3 Ml Ampul.neb 3 ML NEB QID for 30 Days, #120 EACH Prov: GILBERT QUAN MD 06/28/17 Problem Qualifiers Primary Impression: Asthma exacerbation Asthma severity: moderate Asthma persistence: persistent Qualified Codes: J45.41 - Moderate persistent asthma with (acute) exacerbation GILBERT QUAN MD Jun 28, 2017 00:05
[2017-06-28 00:11] LABS: BASO # 0.1 x10^3/uL (0.0-0.2); BASO % 1 % (0-3); EOS % 11 % (0-3); HEMATOCRIT 42.4 % (36.0-47.0); HEMOGLOBIN 13.5 g/dL (12.0-15.5); LYMPH # 3.4 x10^3/uL (1.0-4.8); LYMPH % 40 % (24-48); MEAN CORPUSCULAR HEMOGLOBIN 25 pg (25-35); MEAN CORPUSCULAR HGB CONC 32 g/dL (31-37); MEAN CORPUSCULAR VOLUME 78 fL (79-100); MONO % 5 % (0-9); NEUT % 43 % (31-73); PLATELET COUNT 281 x10^3/uL (140-400); RED BLOOD COUNT 5.46 x10^6/uL (3.50-5.40); RED CELL DISTRIBUTION WIDTH 13.5 % (11.5-14.5); WHITE BLOOD COUNT 8.5 x10^3/uL (4.0-11.0)
[2017-06-28 00:13] LABS: BILIRUBIN,URINE NEGATIVE (NEG); GLUCOSE,URINE NEGATIVE (NEG); NITRITE,URINE NEGATIVE (NEG); PROTEIN,URINE NEGATIVE (NEG-TRACE)
[2017-06-28 00:20] LABS: BACTERIA,URINE FEW /HPF (0-FEW); RBC,URINE 0 /HPF (0-2); SQUAMOUS EPITHELIAL CELL,UR MANY /LPF
[2017-06-28 00:23] LABS: CALCIUM 8.9 mg/dL (8.5-10.1); CREATININE 0.8 mg/dL (0.6-1.0); GFR 108.5; POTASSIUM 4.2 mmol/L (3.5-5.1)
[2017-06-28 00:28] LABS: OBC FLU VALID
[2017-06-28 00:29] LABS: ALBUMIN 3.5 g/dL (3.4-5.0); ALBUMIN/GLOBULIN RATIO 0.9 (1.0-1.7); TOTAL BILIRUBIN 0.3 mg/dL (0.2-1.0); TOTAL PROTEIN 7.6 g/dL (6.4-8.2)
[2017-06-28] MEDS ORDERED: IV NORMAL SALINE 1000ML BAG 1,000 ML IV SCH (00:30)
[2017-06-28] MEDS ORDERED: IPRATRPIUM/ALBUTEROL 0.5/2.5MG 3 ML NEBU. NEB ONE (00:30)
[2017-06-28] MEDS ORDERED: methylPREDNISolone SOD SUCC PF 125 MG/2 ML VIAL. IV ONE (00:30)
[2017-06-28] MEDS ORDERED: CONTRAST GIVEN MC PRN (01:00)
[2017-06-28] MEDS ORDERED: IOHEXOL 300 MG/ML 100ML VIAL. IV ONE (01:30)
--- NOTE | 2017-06-28 02:18 | RAD ---
INDICATION: ELEVATED D DIMER SOA INJ 75ML OMNI 300 NO PREV NO SURGERIES COMPARISON: None. TECHNIQUE: Axial CT images obtained through the chest. Intravenous contrast utilized. Angiogram 3D images processed per protocol. One or more of the following individualized dose reduction techniques were utilized for this examination: 1. Automated exposure control; 2. Adjustment of the mA and/or kV according to patient size; 3. Use of iterative reconstruction technique. FINDINGS: There is some mosaic attenuation in the lungs. There are couple of sub-4 mm nodules but likely benign given the patient's age. There are some regions of mild peribronchial thickening. No definite lobar infiltrate. The proximal thoracic aorta is obscured by motion but no definite aneurysm elsewhere within the thoracic aorta. Soft tissue density in anterior mediastinum. Most common cause is residual thymus given patient's age. No embolus in main, right main or left main pulmonary artery but patient motion obscures peripheral vessels IMPRESSION: 1. No embolus is seen in the main, right main or left main pulmonary artery. There is a large amount of patient motion which obscures peripheral vessels. 2. There are some regions of air trapping as well as groundglass opacities in the lungs and peribronchial thickening. Would correlate for possible causes such as bronchitis or small airway disease. Electronically signed by: Bashir Sapp MD (06/28/2017 2:15 AM) [facility]
[2017-06-28] MEDS ORDERED: PRED-220 PO (02:27)
[2017-06-28] MEDS ORDERED: IPRA3AMP NEB (02:27)
[2017-06-28] MEDS ORDERED: AZIT250T6 PO (02:27)
[2017-06-28] MEDS ORDERED: AZITHROMYCIN 250 MG TABLET. PO ONE (03:00)
--- NOTE | 2017-06-28 08:13 | RAD ---
AP chest. History: Wheezing AP view was taken of the chest. Lungs are clear. Heart is normal in size without heart failure. There is no pleural effusion. Impression: 1. No acute chest disease.
== END 2017-06-28 02:58 | disposition home or self-care (01) ==
LOC: ER 23:48
DX: J45.41 Moderate persistent asthma with (acute) exacerbation (principal)
CPT/HCPCS: 36415; 71010; 71275; 80053; 81001; 81025; 83880; 84484; 85025; 85379; 87086; 87804; 94250; 94640; 96361; 96374; 99285; J2930; J7030; J7620; Q0144

== ENCOUNTER 2017-08-09 10:39 | Emergency (ER) | payer OTHER ==
[2017-08-09] MEDS: IPRATRPIUM/ALBUTEROL 0.5/2.5MG 3 ML NEBU. NEB (11:17)
== END 2017-08-09 12:02 | disposition home or self-care (01) ==
LOC: ER 10:39
DX: J45.901 Unspecified asthma with (acute) exacerbation (principal); Z91.041 Radiographic dye allergy status
CPT/HCPCS: 94640; 99284-25; J7620

== ENCOUNTER 2017-10-08 19:56 | Emergency (ER) | payer OTHER ==
[2017-10-08] MEDS: IPRATRPIUM/ALBUTEROL 0.5/2.5MG 3 ML NEBU. NEB ×2 (21:01→21:02)
[2017-10-08] MEDS: methylPREDNISolone SOD SUCC PF 125 MG/2 ML VIAL. IM (21:05)
== END 2017-10-08 21:08 | disposition home or self-care (01) ==
LOC: ER 19:56
DX: J45.901 Unspecified asthma with (acute) exacerbation (principal); Z91.041 Radiographic dye allergy status
CPT/HCPCS: 94640; 96372; 99284-25; J2930; J7620

== ENCOUNTER 2017-11-09 12:35 | Emergency (ER) | payer SELFPAY, OTHER ==
[2017-11-09] MEDS: methylPREDNISolone SOD SUCC PF 125 MG/2 ML VIAL. IM (13:31)
[2017-11-09] MEDS: IPRATRPIUM/ALBUTEROL 0.5/2.5MG 3 ML NEBU. NEB (13:44)
== END 2017-11-09 14:12 | disposition home or self-care (01) ==
LOC: ER 12:35
DX: J45.901 Unspecified asthma with (acute) exacerbation (principal); Z91.041 Radiographic dye allergy status; Z76.0 Encounter for issue of repeat prescription; Z79.899 Other long term (current) drug therapy
CPT/HCPCS: 94640; 96372; 99283; J2930; J7620

== ENCOUNTER 2017-11-24 18:13 | Emergency (ER) | payer SELFPAY ==
[2017-11-24] MEDS ORDERED: IPRATRPIUM/ALBUTEROL 0.5/2.5MG 3 ML NEBU. NEB (19:00)
[2017-11-24] MEDS: methylPREDNISolone SOD SUCC PF 125 MG/2 ML VIAL. IM (19:04)
== END 2017-11-24 19:40 | disposition home or self-care (01) ==
LOC: ER 18:13
DX: J45.901 Unspecified asthma with (acute) exacerbation (principal); Z79.899 Other long term (current) drug therapy; Z88.8 Allergy status to other drugs, medicaments and biological substances
CPT/HCPCS: 94640; 96372; 99283; J2930

== ENCOUNTER 2017-12-01 10:47 | Emergency (ER) | payer SELFPAY ==
[2017-12-01] MEDS: IPRATRPIUM/ALBUTEROL 0.5/2.5MG 3 ML NEBU. NEB (11:22)
[2017-12-01] MEDS: predniSONE 10 MG TABLET PO (12:19)
== END 2017-12-01 12:20 | disposition home or self-care (01) ==
LOC: ER 10:47
DX: J45.901 Unspecified asthma with (acute) exacerbation (principal); Z91.041 Radiographic dye allergy status
CPT/HCPCS: 94640; 99283; J7512; J7620

== ENCOUNTER 2018-04-10 01:31 | Emergency (ER) | payer SELFPAY ==
[~2018-04-10] VITALS: Ht 167.6 cm; Wt 86.2 kg
[~2018-04-10 01:31] MED LIST changes: +ALBU2.5V14 NEB; +ALBU2.5V5 NEB; +AZIT250T6 PO; -IPRA3AMP NEB; +IPRA3AMP29 NEB; +PRED-220 PO
[2018-04-10 01:35] VITALS: BP 126/75
[2018-04-10] MEDS ORDERED: IPRATRPIUM/ALBUTEROL 0.5/2.5MG 3 ML NEBU. NEB ONE (02:00)
[2018-04-10] MEDS ORDERED: DEXAMETHASONE 4 MG TABLET PO ONE (02:30)
--- NOTE | 2018-04-10 02:31 | PHYS DOC ---
Past Medical History Past Medical History: Asthma, Bronchitis Additional Past Medical Histor: PRIOR MECHANICAL VENT FOR ASTHMA EXACERBATION Past Surgical History: No Surgical History Alcohol Use: None Drug Use: None Adult General Chief Complaint Chief Complaint: ASTHMA HPI HPI Patient is a 22 year old female with a history of asthma and bronchitis who presents with wheezing and shortness of breath. She states the symptoms began 1 day ago and has been constant. She denies chest pain, abdominal pain, nausea, vomiting, fever, chills, headache. She does endorse a non-productive cough. She states that she has had worse asthma exacerbations in the past, but still wanted to come in because the difficulty breathing was annoying her. Review of Systems Review of Systems Constitutional: Denies fever or chills Eyes: Denies change in visual acuity, redness, or eye pain HENT: Denies nasal congestion or sore throat Respiratory: Notes wheezing, shortness of breath, and cough Cardiovascular: Denies chest pain or heart palpitations GI: Denies abdominal pain, nausea, vomiting, diarrhea, or constipation : Denies dysuria or hematuria Musculoskeletal: Denies back pain or joint pain Integument: Denies rash or skin lesions Neurologic: Denies headache, focal weakness or sensory changes Complete systems were reviewed and found to be within normal limits, except as documented in this note. Family History Family History Noncontributory Current Medications Current Medications Current Medications Medications (Trade) Dose Ordered Sig/Felipe Start Time Stop Time Status Last Admin Dose Admin Albuterol/ Ipratropium (Duoneb) 3 ml 1X ONCE 04/10/18 02:00 04/10/18 02:01 DC 04/10/18 02:00 3 ML Dexamethasone (Decadron) 10 mg 1X ONCE 04/10/18 02:30 04/10/18 02:31 Cancel Dexamethasone Sodium Phosphate (Decadron) 10 mg 1X ONCE 04/10/18 02:45 04/10/18 02:46 DC 04/10/18 03:09 10 MG Allergies Allergies Allergies Coded Allergies Type Severity Reaction Last Updated Verified I S O L A T I O N *CONTACT* Allergy Unknown 08/04/17 Yes No Known Medication Allergies Allergy Unknown 08/04/17 Yes NKDA Physical Exam Physical Exam Constitutional: Well developed, well nourished HENT: Normocephalic, atraumatic, oropharynx moist Eyes: Conjunctiva normal, no discharge Neck: Normal range of motion, no tenderness, supple Cardiovascular: Heart rate regular rhythm, no murmur Lungs & Thorax: Slight diffuse wheezes heard bilaterally Abdomen: Soft, no tenderness Skin: Warm, dry, no erythema, no rash Back: No tenderness, no CVA tenderness Extremities: No tenderness, ROM intact, no edema Neurologic: Alert and oriented X 3, normal motor function, normal sensory function, no focal deficits noted Psychologic: Affect normal, judgment normal, mood normal Current Patient Data Vital Signs Vital Signs Date Time Temp Pulse Resp B/P (MAP) Pulse Ox O2 Delivery O2 Flow Rate FiO2 04/10/18 01:35 98.3 86 24 126/75 (92) 97 Room Air 98.3 Lab Values Laboratory Tests Test 04/10/18 02:46 POC Urine HCG, Qualitative Hcg negative (Negative) EKG EKG [] Radiology/Procedures Radiology/Procedures [] Course & Med Decision Making Course & Med Decision Making Patient is a 22 year old female with a history of asthma and bronchitis who presents with wheezing and shortness of breath. Pertinent labs and imaging studies reviewed (see chart for details). She was provided with a Duoneb treatment and a dexamethasone IM injection. Patient elected to have the injection rather than oral dexamethasone. She will be discharged with neb solution, albuterol inhaler, and prednisone prescription. Patient stable for discharge with outpatient follow-up with PCP. Discussed findings and plan with patient who acknowledges understanding and agreement. Dragon Disclaimer Dragon Disclaimer This electronic medical record was generated, in whole or in part, using a voice recognition dictation system. Departure Departure Impression: Primary Impression: Asthma exacerbation Disposition: 01 HOME, SELF-CARE Condition: IMPROVED Referrals: NO PCP (PCP) Patient Instructions: Asthma, F.L.A.R.E., [id number] Scripts Prednisone (PREDNISONE) 20 Mg Tablet 2 TAB PO DAILY, #8 TAB Start on Friday04/11/18 Prov: ARJUN LOU DO 04/10/18 Albuterol Sulfate (ALBUTEROL SULFATE CONC NEB SOLN) 2.5 Mg/0.5 Ml Vial.neb 1 VIAL NEB Q6HRS, #60 VIAL 0 Refills Prov: ARJUN LOU DO 04/10/18 Albuterol Sulfate (PROAIR HFA INHALER) 8.5 Gm Hfa.aer.ad 1 PUFF INH PRN Q6HRS PRN for SHORTNESS OF BREATH, #1 INHALER 0 Refills Prov: ARJUN LOU DO 04/10/18 Problem Qualifiers Primary Impression: Asthma exacerbation Asthma severity: mild Asthma persistence: unspecified Qualified Codes: J45.901 - Unspecified asthma with (acute) exacerbation ARJUN LOU DO Apr 10, 2018 02:31
[2018-04-10] MEDS ORDERED: DEXAMETHASONE SOD PHOS 20 MG/5 ML VIAL. IM ONE (02:45)
[2018-04-10] MEDS ORDERED: PROAIR HFA8.5 GM INH (03:15)
[2018-04-10] MEDS ORDERED: ALBU2.5V14 NEB (03:15)
[2018-04-10] MEDS ORDERED: PRED20TA PO (03:15)
== END 2018-04-10 03:25 | disposition home or self-care (01) ==
LOC: ER 01:31
DX: J45.901 Unspecified asthma with (acute) exacerbation (principal); Z91.041 Radiographic dye allergy status
CPT/HCPCS: 81025; 94640; 96372; 99283; J1100; J7620

== ENCOUNTER 2018-04-21 23:07 | Emergency (ER) | payer SELFPAY ==
[~2018-04-21] VITALS: Ht 167.6 cm; Wt 86.2 kg
[2018-04-21 23:15] VITALS: BP 126/77
[2018-04-22] MEDS ORDERED: DEXAMETHASONE SOD PHOS 20 MG/5 ML VIAL. IM ONE (00:30)
[2018-04-22] MEDS ORDERED: IPRATRPIUM/ALBUTEROL 0.5/2.5MG 3 ML NEBU. NEB ONE (00:30)
[2018-04-22] MEDS ORDERED: ALBU1.25 NEB (00:43)
[2018-04-22] MEDS ORDERED: CETI1TAB7 PO (00:43)
[2018-04-22] MEDS ORDERED: BENZ100C PO (00:43)
--- NOTE | 2018-04-22 00:43 | PHYS DOC ---
Past Medical History Past Medical History: Asthma, Bronchitis Additional Past Medical Histor: PRIOR MECHANICAL VENT FOR ASTHMA EXACERBATION Past Surgical History: No Surgical History Alcohol Use: None Drug Use: None Adult General Chief Complaint Chief Complaint: Congestion HPI HPI Patient is a 22 year old female with history of asthma, bronchitis, who presents today complaining of cough nasal congestion and wheezing that began 4 days ago. Patient denies any fever. She states she was not able to use her breathing machine at home because she does not have the medication. Review of Systems Review of Systems Constitutional: Denies fever or chills [] Eyes: Denies change in visual acuity, redness, or eye pain [] HENT: Reports nasal congestion, denies sore throat [] Respiratory: Reports cough, wheezing denies shortness of breath [] Cardiovascular: No additional information not addressed in HPI [] GI: Denies abdominal pain, nausea, vomiting, bloody stools or diarrhea [] : Denies dysuria or hematuria [] Musculoskeletal: Denies back pain or joint pain [] Integument: Denies rash or skin lesions [] Neurologic: Denies headache, focal weakness or sensory changes [] All other systems were reviewed and found to be within normal limits, except as documented in this note. Current Medications Current Medications Current Medications Medications (Trade) Dose Ordered Sig/Felipe Start Time Stop Time Status Last Admin Dose Admin Albuterol/ Ipratropium (Duoneb) 3 ml 1X ONCE 04/22/18 00:30 04/22/18 00:31 Benzonatate (Tessalon Perle) 100 mg 1X ONCE 04/22/18 01:00 04/22/18 01:01 Cetirizine HCl (ZyrTEC) 10 mg 1X ONCE 04/22/18 01:00 04/22/18 01:01 Dexamethasone Sodium Phosphate (Decadron) 10 mg 1X ONCE 04/22/18 00:30 04/22/18 00:31 Allergies Allergies Allergies Coded Allergies Type Severity Reaction Last Updated Verified naproxen Allergy Severe CAUSES ASTHMA ATTACK 04/21/18 Yes I S O L A T I O N *CONTACT* Allergy Unknown 08/04/17 Yes Physical Exam Physical Exam Constitutional: Well developed, well nourished, no acute distress, non-toxic appearance. [] HENT: Normocephalic, atraumatic, bilateral external ears normal, oropharynx moist, no oral exudates, nose normal. [] Eyes: PERRLA, EOMI, conjunctiva normal, no discharge. [] Neck: Normal range of motion, no tenderness, supple, no stridor. [] Cardiovascular:Heart rate regular rhythm, no murmur [] Lungs & Thorax: Slight wheezing to anterior upper lung bases. Abdomen: Bowel sounds normal, soft, no tenderness, no masses, no pulsatile masses. [] Skin: Warm, dry, no erythema, no rash. [] Back: No tenderness, no CVA tenderness. [] Extremities: No tenderness, no cyanosis, no clubbing, ROM intact, no edema. [] Neurologic: Alert and oriented X 3, normal motor function, normal sensory function, no focal deficits noted. [] Psychologic: Affect normal, judgement normal, mood normal. [] Current Patient Data Vital Signs Vital Signs Date Time Temp Pulse Resp B/P (MAP) Pulse Ox O2 Delivery O2 Flow Rate FiO2 04/21/18 23:15 98.2 68 14 126/77 (93) 98 Room Air 98.2 EKG EKG [] Radiology/Procedures Radiology/Procedures [] Course & Med Decision Making Course & Med Decision Making Pertinent Labs and Imaging studies reviewed. (See chart for details) This is a 22-year-old female patient with history of asthma presenting to the ED today with cough wheezing nasal congestion for 4 days. Patient is a fever. Was given a DuoNeb treatment and Decadron IM per her request. Breathing is back to baseline. Patient be discharged with prednisone and albuterol breathing treatments. Also given prescription for Zyrtec and Tessalon Perles. Follow-up with PCP in 1-2 weeks. Dragon Disclaimer Dragon Disclaimer This electronic medical record was generated, in whole or in part, using a voice recognition dictation system. Departure Departure Impression: Primary Impression: Asthma exacerbation Additional Impression: Upper respiratory infection Disposition: 01 HOME, SELF-CARE Condition: STABLE (he drinks there is) Referrals: NO PCP (PCP) follow up with your doctor in 2 weeks Patient Instructions: Asthma, Adult, Upper Respiratory Infection, Adult, Easy- to-Read Additional Instructions: You were evaluated in the emergency room with symptoms consistent of an upper respiratory infection and asthma. Take breathing treatments at home as needed. Take the rest of the medications as ordered. Follow-up with your own doctor in 1 -2 weeks as needed. Scripts Cetirizine Hcl/Pseudoephedrine (ZYRTEC-D TABLET) 1 Each Tab.er.12h 1 TAB PO BID, #20 TAB Prov: DEBORAH COTO APRN 04/22/18 Benzonatate (TESSALON PERLE) 100 Mg Capsule 1 CAP PO TID, #30 CAP Prov: DEBORAH COTO APRN 04/22/18 Albuterol Sulfate (ALBUTEROL SULFATE NEB SOLN) 1.25 Mg/3 Ml Vial.neb 1 VIAL NEB Q4HRS, #75 ML 1 Refill Prov: DEBORAH COTO APRN 04/22/18 Problem Qualifiers Primary Impression: Asthma exacerbation Asthma severity: mild Asthma persistence: intermittent Qualified Codes: J45.21 - Mild intermittent asthma with (acute) exacerbation Additional Impression: Upper respiratory infection URI type: unspecified URI Qualified Codes: J06.9 - Acute upper respiratory infection, unspecified DEBORAH COTO APRN Apr 22, 2018 00:43
[2018-04-22] MEDS ORDERED: BENZONATATE 100 MG CAPSULE. PO ONE (01:00)
[2018-04-22] MEDS ORDERED: CETIRIZINE HCL 10 MG TABLET. PO ONE (01:00)
== END 2018-04-22 01:22 | disposition home or self-care (01) ==
LOC: ER 23:07
DX: J45.21 Mild intermittent asthma with (acute) exacerbation (principal); J06.9 Acute upper respiratory infection, unspecified; Z88.8 Allergy status to other drugs, medicaments and biological substances; Z91.041 Radiographic dye allergy status
CPT/HCPCS: 94640; 96372; 99283; J1100; J7620

== ENCOUNTER 2018-05-17 20:07 | Emergency (ER) | payer SELFPAY ==
[~2018-05-17] VITALS: Ht 167.6 cm; Wt 86.2 kg
[2018-05-17 20:11] VITALS: BP 143/89
--- NOTE | 2018-05-17 23:18 | PHYS DOC ---
Past Medical History Past Medical History: Asthma, Bronchitis Additional Past Medical Histor: PRIOR MECHANICAL VENT FOR ASTHMA EXACERBATION Past Surgical History: No Surgical History Alcohol Use: None Drug Use: None Adult General Chief Complaint Chief Complaint: TEST [facility] Patient is a 22 year old female who presents with need for a test. The patient states she has felt like she felt fluttering movement in her abdomen. The patient states that she is constipated but has not tried any over- the-counter medications to treat her constipation. She had her last period at the beginning of April. She denies any vaginal discharge, pelvic pain or breast tenderness. Review of Systems Review of Systems Constitutional: Denies fever or chills [] Eyes: Denies change in visual acuity, redness, or eye pain [] HENT: Denies nasal congestion or sore throat [] Respiratory: Denies cough or shortness of breath [] Cardiovascular: No additional information not addressed in HPI [] GI: See history of present illness : Denies dysuria or hematuria [] Musculoskeletal: Denies back pain or joint pain [] Integument: Denies rash or skin lesions [] Neurologic: Denies headache, focal weakness or sensory changes [] Endocrine: Denies polyuria or polydipsia [] All other systems were reviewed and found to be within normal limits, except as documented in this note. Allergies Allergies Allergies Coded Allergies Type Severity Reaction Last Updated Verified naproxen Allergy Severe CAUSES ASTHMA ATTACK 04/21/18 Yes I S O L A T I O N *CONTACT* Allergy Unknown 08/04/17 Yes Physical Exam Physical Exam Constitutional: Well developed, well nourished, no acute distress, non-toxic appearance. [] Neck: Normal range of motion, no tenderness, supple, no stridor. [] Cardiovascular:Heart rate regular rhythm, no murmur [] Lungs & Thorax: Bilateral breath sounds clear to auscultation [] Abdomen: Bowel sounds normal, soft, no tenderness, no masses, no pulsatile masses. [] Skin: Warm, dry, no erythema, no rash. [] Back: No tenderness, no CVA tenderness. [] Neurologic: Alert and oriented X 3, normal motor function, normal sensory function, no focal deficits noted. [] Psychologic: Affect normal, judgement normal, mood normal. [] Current Patient Data Vital Signs Vital Signs Date Time Temp Pulse Resp B/P (MAP) Pulse Ox O2 Delivery O2 Flow Rate FiO2 05/17/18 20:11 98.4 70 18 143/89 (107) 95 Room Air 98.4 Lab Values Laboratory Tests Test 05/17/18 20:36 POC Urine HCG, Qualitative Hcg negative (Negative) EKG EKG [] Radiology/Procedures Radiology/Procedures [] Course & Med Decision Making Course & Med Decision Making Pertinent Labs and Imaging studies reviewed. (See chart for details) The patient is negative for . Dragon Disclaimer Dragon Disclaimer This electronic medical record was generated, in whole or in part, using a voice recognition dictation system. Departure Departure Impression: Primary Impression: Feared complaint without diagnosis Disposition: HOME, SELF-CARE Condition: STABLE Patient Instructions: Constipation, Adult Additional Instructions: Your test was negative. Follow-up with your primary care provider as needed. You're abdominal dysfunction is probably caused by constipation. Use an [id number] laxative. SANJAY LUND APRN May 17, 2018 23:18
== END 2018-05-17 21:11 | disposition home or self-care (01) ==
LOC: ER 20:07
DX: Z71.1 Person with feared health complaint in whom no diagnosis is made (principal); K59.00 Constipation, unspecified; J45.909 Unspecified asthma, uncomplicated; Z88.8 Allergy status to other drugs, medicaments and biological substances; Z91.041 Radiographic dye allergy status
CPT/HCPCS: 81025; 99282

== ENCOUNTER 2018-07-02 11:31 | Emergency (ER) | payer SELFPAY ==
[~2018-07-02] VITALS: Ht 167.6 cm; Wt 86.2 kg
[2018-07-02] MEDS ORDERED: AZITHROMYCIN 250 MG TABLET. PO ONE (12:00)
[2018-07-02] MEDS ORDERED: IPRATRPIUM/ALBUTEROL 0.5/2.5MG 3 ML NEBU. NEB ONE (12:00)
[2018-07-02] MEDS ORDERED: methylPREDNISolone SOD SUCC PF 125 MG/2 ML VIAL. IM ONE (12:00)
--- NOTE | 2018-07-02 12:24 | PHYS DOC ---
Past Medical History Past Medical History: Asthma, Bronchitis Additional Past Medical Histor: PRIOR MECHANICAL VENT FOR ASTHMA EXACERBATION Past Surgical History: No Surgical History Alcohol Use: None Drug Use: None Adult General Chief Complaint Chief Complaint: ASTHMA HPI HPI Patient is a 23 year old female who presents with asthma exacerbation. Patient is known to have asthma. She uses albuterol nebulized treatments at home. Over the last 2-3 days, she has had worsening shortness of breath which has been unresponsive to treatments. She has had a cough. She complains of sore throat and subjective fevers at home. She has general malaise and myalgias. Some upper respiratory congestion. No headaches, vision changes. The patient does state she was recently intubated due to the severity of her asthma. This was about one month earlier. Review of Systems Review of Systems Constitutional: Denies fever or chills Eyes: Denies change in visual acuity HENT: Denies Respiratory: as documented above Cardiovascular: No additional information not addressed in HPI GI: Denies abdominal pain, nausea, vomiting : Denies dysuria or hematuria Musculoskeletal: Denies back pain or joint pain Integument: Denies rash or skin lesions Neurologic: Denies headache All other systems were reviewed and found to be within normal limits, except as documented in this note. Current Medications Current Medications Current Medications Medications (Trade) Dose Ordered Sig/Felipe Start Time Stop Time Status Last Admin Dose Admin Albuterol Sulfate (Ventolin Neb Soln) 2.5 mg 1X ONCE 07/02/18 12:45 07/02/18 12:46 DC 07/02/18 12:47 2.5 MG Albuterol/ Ipratropium (Duoneb) 3 ml 1X ONCE 07/02/18 12:00 07/02/18 12:01 DC 07/02/18 12:14 3 ML Azithromycin (Zithromax) 500 mg 1X ONCE 07/02/18 12:00 07/02/18 12:01 DC 07/02/18 12:07 500 MG Methylprednisolone Sodium Succinate (SOLU-Medrol 125MG VIAL) 125 mg 1X ONCE 07/02/18 12:00 07/02/18 12:01 DC 07/02/18 12:06 125 MG Allergies Allergies Allergies Coded Allergies Type Severity Reaction Last Updated Verified naproxen Allergy Severe CAUSES ASTHMA ATTACK 04/21/18 Yes I S O L A T I O N *CONTACT* Allergy Unknown 08/04/17 Yes Physical Exam Physical Exam Constitutional: Well developed, well nourished, no acute distress, non-toxic appearance HENT: Normocephalic, atraumatic, bilateral external ears normal, oropharynx moist, Posterior oral pharynx is injected with punctate exudates present. Eyes: PERRLA, EOMI Neck: Normal range of motion, no tenderness Cardiovascular:Heart rate regular rhythm, no murmur Lungs & Thorax: Few faint wheezes auscultated bilaterally, no increased work of breathing Skin: Warm, dry, no erythema, no rash Back: No tenderness Extremities: No edema Neurologic: Alert and oriented X 3 Psychologic: Affect normal Current Patient Data Vital Signs Vital Signs Date Time Temp Pulse Resp B/P (MAP) Pulse Ox O2 Delivery O2 Flow Rate FiO2 07/02/18 12:47 Room Air 07/02/18 12:15 96 07/02/18 11:51 98.1 84 18 143/96 (112) 98.1 EKG EKG [] Radiology/Procedures Radiology/Procedures [] Course & Med Decision Making Course & Med Decision Making Pertinent Labs and Imaging studies reviewed. (See chart for details) 11:50: Patient is seen and examined. No acute distress but few scattered wheezes in all [place]. Duoneb ordered. Patient requesting IM steroids, solumedrol ordered. 13:00: Patient is currently status post 20 nebulized treatments. She is feeling much improved. Her lungs are clear. She has no increased work of breathing. She received steroids in the ER. Plan is for discharge home. She is placed on prednisone for the next 5 days. She is also given a refill of her albuterol inhaler and nebulized solution for home use. Advised to come back to the ER for any new or worsening symptoms. Dragon Disclaimer Dragon Disclaimer This electronic medical record was generated, in whole or in part, using a voice recognition dictation system. Departure Departure Disposition: 01 HOME, SELF-CARE Condition: GOOD Referrals: NO PCP (PCP) Scripts Albuterol Sulfate (PROAIR HFA INHALER) 8.5 Gm Hfa.aer.ad 1 PUFF INH PRN Q6HRS PRN for SHORTNESS OF BREATH, #1 INHALER 1 Refill Prov: MJ AVINA DO 07/02/18 Albuterol Sulfate (ALBUTEROL SULFATE NEB SOLN) 2.5 Mg/3 Ml Vial.neb 1 VIAL NEB PRN Q4HRS, #50 VIAL 1 Refill Prov: MJ AVINA DO 07/02/18 Azithromycin (AZITHROMYCIN TABLET) 250 Mg Tablet 250 MG PO DAILY for ANTI-BIOTIC for 4 Days, #4 TAB 0 Refills Prov: MJ AVINA DO 07/02/18 Prednisone (PREDNISONE) 50 Mg Tablet 1 TAB PO DAILY, #5 TAB Prov: MJ AVINA DO 07/02/18 MJ AVINA DO Jul 02, 2018 12:24
[2018-07-02] MEDS ORDERED: AZIT250T6 PO (12:31)
[2018-07-02] MEDS ORDERED: PRED50TA PO (12:31)
[2018-07-02] MEDS ORDERED: ALBU2.5V5 NEB (12:31)
[2018-07-02] MEDS ORDERED: ALBUTEROL SULFATE 2.5 MG/3 ML NEBU. NEB ONE (12:45)
[2018-07-02] MEDS ORDERED: PROAIR HFA8.5 GM INH (13:00)
[2018-07-02 13:43] VITALS: BP 138/89
== END 2018-07-02 13:43 | disposition home or self-care (01) ==
LOC: ER 11:31
DX: J45.901 Unspecified asthma with (acute) exacerbation (principal); M79.18 Myalgia, other site; R53.81 Other malaise; Z88.8 Allergy status to other drugs, medicaments and biological substances; Z91.041 Radiographic dye allergy status
CPT/HCPCS: 94640; 96372; 99284; J2930; J7613; J7620; Q0144

== ENCOUNTER 2018-09-11 22:30 | Emergency (ER) | payer SELFPAY ==
[~2018-09-11] VITALS: Ht 167.6 cm; Wt 86.2 kg
[~2018-09-11 22:30] MED LIST changes: +ALBU2.5V8 INH; -PROAIR HFA8.5 GM INH
[2018-09-11 22:32] VITALS: BP 146/86
[2018-09-11] MEDS ORDERED: IPRATRPIUM/ALBUTEROL 0.5/2.5MG 3 ML NEBU. NEB ONE (23:00)
[2018-09-11] MEDS ORDERED: methylPREDNISolone SOD SUCC PF 125 MG/2 ML VIAL. IM ONE (23:00)
--- NOTE | 2018-09-12 00:22 | PHYS DOC ---
Past Medical History Past Medical History: Asthma, Bronchitis Additional Past Medical Histor: PRIOR MECHANICAL VENT FOR ASTHMA EXACERBATION Past Surgical History: No Surgical History Alcohol Use: None Drug Use: None Adult General Chief Complaint Chief Complaint: ASTHMA HPI HPI Patient is a 23 year old female with history of asthma who presents to the ED today complaining of shortness of breath and wheezing as well as a cough intermittently for 2 weeks. Patient states she was seen at a different facility , was given prescription for MDI, she states she is not able to purchase the medication because of funds. Review of Systems Review of Systems Constitutional: Denies fever or chills [] Eyes: Denies change in visual acuity, redness, or eye pain [] HENT: Denies nasal congestion or sore throat [] Respiratory: Reports cough, shortness of breath, wheezing Cardiovascular: No additional information not addressed in HPI [] GI: Denies abdominal pain, nausea, vomiting, bloody stools or diarrhea [] : Denies dysuria or hematuria [] Musculoskeletal: Denies back pain or joint pain [] Integument: Denies rash or skin lesions [] Neurologic: Denies headache, focal weakness or sensory changes [] All other systems were reviewed and found to be within normal limits, except as documented in this note. Current Medications Current Medications Current Medications Medications (Trade) Dose Ordered Sig/Felipe Start Time Stop Time Status Last Admin Dose Admin Albuterol/ Ipratropium (Duoneb) 3 ml 1X ONCE 09/11/18 23:00 09/11/18 23:01 DC 09/11/18 22:56 3 ML Methylprednisolone Sodium Succinate (SOLU-Medrol 125MG VIAL) 125 mg 1X ONCE 09/11/18 23:00 09/11/18 23:01 DC 09/11/18 22:53 125 MG Allergies Allergies Allergies Coded Allergies Type Severity Reaction Last Updated Verified naproxen Allergy Severe CAUSES ASTHMA ATTACK 04/21/18 Yes I S O L A T I O N *CONTACT* Allergy Unknown 08/04/17 Yes Physical Exam Physical Exam Constitutional: Well developed, well nourished, no acute distress, non-toxic appearance. [] HENT: Normocephalic, atraumatic, bilateral external ears normal, oropharynx moist, no oral exudates, nose normal. [] Eyes: PERRLA, EOMI, conjunctiva normal, no discharge. [] Neck: Normal range of motion, no tenderness, supple, no stridor. [] Cardiovascular:Heart rate regular rhythm, no murmur [] Lungs & Thorax: Wheezing diffusely throughout Abdomen: Bowel sounds normal, soft, no tenderness, no masses, no pulsatile masses. [] Skin: Warm, dry, no erythema, no rash. [] Back: No tenderness, no CVA tenderness. [] Extremities: No tenderness, no cyanosis, no clubbing, ROM intact, no edema. [] Neurologic: Alert and oriented X 3, normal motor function, normal sensory function, no focal deficits noted. [] Psychologic: Affect normal, judgement normal, mood normal. [] Current Patient Data Vital Signs Vital Signs Date Time Temp Pulse Resp B/P (MAP) Pulse Ox O2 Delivery O2 Flow Rate FiO2 09/11/18 22:58 100 Room Air 09/11/18 22:32 97.7 104 22 146/86 (106) 97.7 EKG EKG [] Radiology/Procedures Radiology/Procedures [] Course & Med Decision Making Course & Med Decision Making Pertinent Labs and Imaging studies reviewed. (See chart for details) This is a 23-year-old. Patient presenting to the ED today with asthma exacerbation symptoms including cough, wheezing, shortness of breath. Patient was given a breathing treatment in the ED, given Solu-Medrol. Lungs are cleared up. Chest x-ray is negative. Discharged with albuterol and prednisone. Follow- up with PCP next week Natalie Disclaimer Natalie Disclaimer This electronic medical record was generated, in whole or in part, using a voice recognition dictation system. Departure Departure Impression: Primary Impression: Asthma exacerbation Disposition: 01 HOME, SELF-CARE Condition: STABLE Referrals: NO PCP (PCP) Follow up with your doctor in 1 week Patient Instructions: Asthma, Adult Additional Instructions: Please use the breathing treatments as ordered. Complete your prednisone. Follow up with your doctor next week Scripts Albuterol Sulfate (ALBUTEROL SULFATE CONC NEB SOLN) 2.5 Mg/0.5 Ml Vial.neb 1 VIAL NEB Q4HRS, #60 VIAL 1 Refill Prov: DEBORAH COTO APRN 09/12/18 Albuterol Sulfate (VENTOLIN HFA INHALER) 18 Gm Hfa.aer.ad 2 PUFF INH Q4HRS for FOR ASTHMA, #1 INHALER 0 Refills Prov: MUTUNGA,DEBORAH DIRECTOR TRIAL 09/12/18 Prednisone (PREDNISONE) 50 Mg Tablet 1 TAB PO DAILY, #5 TAB Prov: DEBORAH COTO APRN 09/12/18 Problem Qualifiers Primary Impression: Asthma exacerbation Asthma severity: mild Asthma persistence: intermittent Qualified Codes: J45.21 - Mild intermittent asthma with (acute) exacerbation DEBORAH COTO APRN Sep 12, 2018 00:22
[2018-09-12] MEDS ORDERED: PRED50TA PO (00:44)
[2018-09-12] MEDS ORDERED: VENTOLIN HFA18 GM INH (00:44)
[2018-09-12] MEDS ORDERED: ALBU2.5V14 NEB (00:49)
--- NOTE | 2018-09-12 08:28 | RAD ---
PROCEDURE: CHEST PA LATERAL CLINICAL INDICATION: cough COMPARISON: None FINDINGS: No pneumothorax identified. Cardiac and mediastinal contours unremarkable. No pulmonary consolidation or acute airspace disease. No acute osseous abnormalities identified. IMPRESSION: No pulmonary consolidation or acute airspace disease. Electronically signed by: Poncho Ibanez DO (09/12/2018 8:25 AM) [facility]
== END 2018-09-12 00:55 | disposition home or self-care (01) ==
LOC: ER 22:30
DX: J45.21 Mild intermittent asthma with (acute) exacerbation (principal); Z88.8 Allergy status to other drugs, medicaments and biological substances; Z91.041 Radiographic dye allergy status
CPT/HCPCS: 71046; 94640; 96372; 99283; J2930; J7620

== ENCOUNTER 2018-10-03 00:04 | Emergency (ER) | payer SELFPAY ==
[~2018-10-03] VITALS: Ht 167.6 cm; Wt 86.2 kg
[2018-10-03] MEDS ORDERED: predniSONE 20 MG TABLET PO ONE (00:30)
[2018-10-03] MEDS ORDERED: predniSONE 10 MG TABLET PO ONE (00:30)
--- NOTE | 2018-10-03 00:47 | PHYS DOC ---
Past Medical History Past Medical History: Asthma, Bronchitis Additional Past Medical Histor: PRIOR MECHANICAL VENT FOR ASTHMA EXACERBATION Past Surgical History: No Surgical History Alcohol Use: None Drug Use: None Adult General Chief Complaint Chief Complaint: SHORTNESS OF BREATH HPI HPI Patient is a 23 year old female who presents with difficulty breathing. This started approximately 2 hours prior to arrival. No relief with her home medicines. She does have a history of asthma with intubation for an exacerbation approximately a year ago. She denies any fever currently. Denies any nausea or vomiting. No chest pain. Notes that she does have a cough since this exacerbation started.[] Review of Systems Review of Systems Constitutional: Denies fever or chills [] Eyes: Denies change in visual acuity, redness, or eye pain [] HENT: Denies nasal congestion or sore throat [] Respiratory: See history of present illness[] Cardiovascular: No chest pain or palpitations[] GI: Denies abdominal pain, nausea, vomiting, bloody stools or diarrhea [] : Denies dysuria or hematuria [] Musculoskeletal: Denies back pain or joint pain [] Integument: Denies rash or skin lesions [] Neurologic: Denies headache, focal weakness or sensory changes [] Endocrine: Denies polyuria or polydipsia [] All other systems were reviewed and found to be within normal limits, except as documented in this note. Current Medications Current Medications Current Medications Medications (Trade) Dose Ordered Sig/Felipe Start Time Stop Time Status Last Admin Dose Admin Albuterol Sulfate (Ventolin Neb Soln) 10 mg 1X ONCE 10/03/18 01:00 10/03/18 01:01 DC 10/03/18 00:45 10 MG Albuterol/ Ipratropium (Duoneb) 3 ml 1X ONCE 10/03/18 01:00 10/03/18 01:01 DC 10/03/18 00:30 3 ML Lorazepam (Ativan) 1 mg 1X ONCE 10/03/18 02:00 10/03/18 02:01 Cancel Prednisone (Prednisone) 50 mg 1X ONCE 10/03/18 00:30 10/03/18 00:31 Cancel Allergies Allergies Allergies Coded Allergies Type Severity Reaction Last Updated Verified naproxen Allergy Severe CAUSES ASTHMA ATTACK 04/21/18 Yes I S O L A T I O N *CONTACT* Allergy Unknown 08/04/17 Yes Physical Exam Physical Exam Constitutional: Well developed, well nourished, no acute distress, non-toxic appearance. [] HENT: Normocephalic, atraumatic, bilateral external ears normal, oropharynx moist, no oral exudates, nose normal. [] Eyes: PERRLA, EOMI, conjunctiva normal, no discharge. [] Neck: Normal range of motion, no tenderness, supple, no stridor. [] Cardiovascular:Heart rate regular rhythm, no murmur [] Lungs & Thorax: Bilateral breath sounds with inspiratory and expiratory wheezes[ ] Abdomen: Bowel sounds normal, soft, no tenderness, no masses, no pulsatile masses. [] Skin: Warm, dry, no erythema, no rash. [] Back: No tenderness, no CVA tenderness. [] Extremities: No tenderness, no cyanosis, no clubbing, ROM intact, no edema. [] Neurologic: Alert and oriented X 3, normal motor function, normal sensory function, no focal deficits noted. [] Psychologic: Affect normal, judgement normal, mood normal. [] Current Patient Data Vital Signs Vital Signs Date Time Temp Pulse Resp B/P (MAP) Pulse Ox O2 Delivery O2 Flow Rate FiO2 10/03/18 00:49 99 Room Air 10/03/18 00:10 98.7 126 22 157/115 (129) 98.7 EKG EKG [] Radiology/Procedures Radiology/Procedures [] Course & Med Decision Making Course & Med Decision Making Pertinent Labs and Imaging studies reviewed. (See chart for details) ED course: Patient arrived, was placed in bed, and tolerated exam well. She was given a DuoNeb which significantly improved her breath sounds. This was followed by an albuterol neb which continued to improve her breath sounds but there were still some expiratory wheezes. So an hour-long albuterol nebulizer treatment was administered. 0126: No wheezes noted during her hour long albuterol treatment.[] Dragon Disclaimer Dragon Disclaimer This electronic medical record was generated, in whole or in part, using a voice recognition dictation system. Departure Departure Impression: Primary Impression: Asthma exacerbation Disposition: HOME, SELF-CARE Condition: IMPROVED Referrals: NO PCP (PCP) Patient Instructions: Asthma Attacks, Prevention, Asthma, Adult Additional Instructions: Follow-up with your regular doctor in 2 days. Return to the ER if worsening difficulty breathing or any other concerns. Scripts Albuterol Sulfate (ALBUTEROL SULFATE CONC NEB SOLN) 2.5 Mg/0.5 Ml Vial.neb 1 VIAL NEB Q4HRS, #60 VIAL 0 Refills Prov: MODESTO MULLER DO 10/03/18 Prednisone (PREDNISONE) 20 Mg Tablet 20 MG PO DAILY, #20 TAB 3 tablets daily for 3 days Then 2 tablets daily for days 4 through 6 Then 1 tablet daily for days 6 through 9 Then one half tablet daily for days 10 TRHOUGH 13 Prov: MODESTO MULLER DO 10/03/18 Problem Qualifiers Primary Impression: Asthma exacerbation Asthma severity: unspecified severity Asthma persistence: intermittent Qualified Codes: J45.21 - Mild intermittent asthma with (acute) exacerbation MODESTO MULLER DO Oct 03, 2018 00:47
[2018-10-03] MEDS ORDERED: ALBUTEROL SULFATE 2.5 MG/3 ML NEBU. CONT NEB ONE (01:00)
[2018-10-03] MEDS ORDERED: ALBUTEROL SULFATE 2.5 MG/3 ML NEBU. NEB ONE (01:00)
[2018-10-03] MEDS ORDERED: IPRATRPIUM/ALBUTEROL 0.5/2.5MG 3 ML NEBU. NEB ONE (01:00)
[2018-10-03 01:15] VITALS: BP 133/86
[2018-10-03] MEDS ORDERED: LORazepam 1 MG TABLET PO ONE (02:00)
[2018-10-03] MEDS ORDERED: PRED20TA PO (02:21)
[2018-10-03] MEDS ORDERED: ALBU2.5V14 NEB (02:21)
== END 2018-10-03 02:35 | disposition home or self-care (01) ==
LOC: ER 00:04
DX: J45.21 Mild intermittent asthma with (acute) exacerbation (principal); Z88.8 Allergy status to other drugs, medicaments and biological substances; Z91.041 Radiographic dye allergy status
CPT/HCPCS: 94640; 99284; J7512; J7613; J7620; 94644

== ENCOUNTER 2018-10-19 23:08 | Emergency (ER) | payer SELFPAY ==
[~2018-10-19] VITALS: Ht 167.6 cm; Wt 77.1 kg
[2018-10-19 23:46] LABS: BILIRUBIN,URINE NEGATIVE (NEG); CLARITY,URINE CLEAR; COLOR,URINE YELLOW; NITRITE,URINE NEGATIVE (NEG); PH,URINE 6.5; PROTEIN,URINE NEGATIVE (NEG-TRACE)
[2018-10-19 23:51] LABS: BACTERIA,URINE MODERATE /HPF (0-FEW); SQUAMOUS EPITHELIAL CELL,UR MOD /LPF
[2018-10-20] MEDS ORDERED: DEXAMETHASONE 4 MG TABLET PO ONE
[2018-10-20] MEDS ORDERED: IPRATRPIUM/ALBUTEROL 0.5/2.5MG 3 ML NEBU. NEB ONE
[2018-10-20] MEDS ORDERED: ACETAMINOPHEN 500 MG TABLET PO ONE
[2018-10-20 00:01] LABS: INFLUENZA A PATIENT NEGATIVE (NEGATIVE); INFLUENZA B PATIENT NEGATIVE (NEGATIVE)
[2018-10-20] MEDS ORDERED: AMOX1TAB61 PO (01:07)
[2018-10-20] MEDS ORDERED: PNV1TABL25 PO (01:07)
--- NOTE | 2018-10-20 01:07 | PHYS DOC ---
Past Medical History Past Medical History: Asthma, Bronchitis Additional Past Medical Histor: PRIOR MECHANICAL VENT FOR ASTHMA EXACERBATION Past Surgical History: No Surgical History Alcohol Use: None Drug Use: None Adult General Chief Complaint Chief Complaint: GENERALIZED BODY ACHES [facility] HPI Patient is a 23 year old [f__sex] who presents with [] Review of Systems Review of Systems Constitutional: Denies fever or chills [] Eyes: Denies change in visual acuity, redness, or eye pain [] HENT: Denies nasal congestion or sore throat [] Respiratory: Denies cough or shortness of breath [] Cardiovascular: No additional information not addressed in HPI [] GI: Denies abdominal pain, nausea, vomiting, bloody stools or diarrhea [] : Denies dysuria or hematuria [] Musculoskeletal: Denies back pain or joint pain [] Integument: Denies rash or skin lesions [] Neurologic: Denies headache, focal weakness or sensory changes [] Endocrine: Denies polyuria or polydipsia [] All other systems were reviewed and found to be within normal limits, except as documented in this note. Current Medications Current Medications Current Medications Medications (Trade) Dose Ordered Sig/Felipe Start Time Stop Time Status Last Admin Dose Admin Acetaminophen (Tylenol) 500 mg 1X ONCE 10/20/18 00:00 10/20/18 00:01 DC 10/19/18 23:56 500 MG Albuterol/ Ipratropium (Duoneb) 3 ml 1X ONCE 10/20/18 00:00 10/20/18 00:01 DC 10/19/18 23:56 3 ML Dexamethasone (Decadron) 10 mg 1X ONCE 10/20/18 00:00 10/20/18 00:01 DC 10/19/18 23:56 10 MG Allergies Allergies Allergies Coded Allergies Type Severity Reaction Last Updated Verified naproxen Allergy Severe CAUSES ASTHMA ATTACK 04/21/18 Yes I S O L A T I O N *CONTACT* Allergy Unknown 08/04/17 Yes Physical Exam Physical Exam Constitutional: Well developed, well nourished, no acute distress, non-toxic appearance. [] HENT: Normocephalic, atraumatic, bilateral external ears normal, oropharynx moist, no oral exudates, nose normal. [] Eyes: PERRLA, EOMI, conjunctiva normal, no discharge. [] Neck: Normal range of motion, no tenderness, supple, no stridor. [] Cardiovascular:Heart rate regular rhythm, no murmur [] Lungs & Thorax: Bilateral breath sounds clear to auscultation [] Abdomen: Bowel sounds normal, soft, no tenderness, no masses, no pulsatile masses. [] Skin: Warm, dry, no erythema, no rash. [] Back: No tenderness, no CVA tenderness. [] Extremities: No tenderness, no cyanosis, no clubbing, ROM intact, no edema. [] Neurologic: Alert and oriented X 3, normal motor function, normal sensory function, no focal deficits noted. [] Psychologic: Affect normal, judgement normal, mood normal. [] Current Patient Data Vital Signs Vital Signs Date Time Temp Pulse Resp B/P (MAP) Pulse Ox O2 Delivery O2 Flow Rate FiO2 10/19/18 23:56 93 Room Air 10/19/18 23:25 102.7 109 18 121/71 (88) 102.7 Lab Values Laboratory Tests Test 10/19/18 23:10 10/19/18 23:21 10/19/18 23:37 Urine Collection Type Unknown Urine Color Yellow Urine Clarity Clear Urine pH 6.5 Urine Specific [place] 1.025 Urine Protein Negative mg/dL (NEG-TRACE) Urine Glucose (UA) Negative mg/dL (NEG) Urine Ketones (Stick) Trace mg/dL (NEG) Urine Blood Negative (NEG) Urine Nitrite Negative (NEG) Urine Bilirubin Negative (NEG) Urine Urobilinogen Dipstick 4.0 mg/dL (0.2 mg/dL) Urine Leukocyte Esterase Moderate (NEG) Urine RBC 1-2 /HPF (0-2) Urine WBC 5-10 /HPF (0-4) Urine Squamous Epithelial Cells Mod /LPF Urine Bacteria Moderate /HPF (0-FEW) Urine Mucus Mod /LPF Influenza Type A Antigen Negative (NEGATIVE) Influenza Type B Antigen Negative (NEGATIVE) POC Urine HCG, Qualitative Hcg positive (Negative) EKG EKG [] Radiology/Procedures Radiology/Procedures [] Course & Med Decision Making Course & Med Decision Making Pertinent Labs and Imaging studies reviewed. (See chart for details) [] Dragon Disclaimer Dragon Disclaimer This electronic medical record was generated, in whole or in part, using a voice recognition dictation system. Departure Departure Impression: Primary Impression: Upper respiratory infection Additional Impressions: UTI (lower urinary tract infection) Disposition: HOME, SELF-CARE Condition: STABLE Referrals: NO PCP (PCP) Patient Instructions: ABCs of , Fever, Adult, [id number], Upper Respiratory Infection, Adult, [id number], Urinary Tract Infection, Easy-to- Read Scripts Pnv Cmb#95/Ferrous Fumarate/Fa ( TABLET) 1 Each Tablet 1 TAB PO DAILY, #20 TAB 0 Refills Prov: ARJUN LOU DO 10/20/18 Amoxicillin/Potassium Clav (AUGMENTIN 875-125 TABLET) 1 Each Tablet 1 TAB PO BID, #14 TAB Prov: ARJUN LOU DO 10/20/18 Problem Qualifiers Primary Impression: Upper respiratory infection URI type: unspecified URI Qualified Codes: J06.9 - Acute upper respiratory infection, unspecified Additional Impressions: Weeks of gestation: unspecified Qualified Codes: Z34.90 - Encounter for supervision of normal , unspecified, unspecified trimester ARJUN LOU DO Oct 20, 2018 01:07
[2018-10-20 01:37] VITALS: BP 113/84
== END 2018-10-20 01:35 | disposition home or self-care (01) ==
LOC: ER 23:08
DX: O23.40 Unspecified infection of urinary tract in pregnancy, unspecified trimester (principal); O99.519 Diseases of the respiratory system complicating pregnancy, unspecified trimester; J45.909 Unspecified asthma, uncomplicated; Z88.8 Allergy status to other drugs, medicaments and biological substances; Z91.041 Radiographic dye allergy status; Z3A.00 Weeks of gestation of pregnancy not specified
CPT/HCPCS: 81001; 81025; 87086; 87804; 94640; 99283; J7620; J8540

== ENCOUNTER 2018-10-27 01:36 | Emergency (ER) | payer SELFPAY ==
[~2018-10-27] VITALS: Ht 167.6 cm; Wt 81.6 kg
[~2018-10-27 01:36] MED LIST changes: +AMOX1TAB61 PO; +PNV1TABL25 PO
[2018-10-27 01:50] VITALS: BP 156/96
[2018-10-27] MEDS ORDERED: PRED20TA PO (01:56)
[2018-10-27] MEDS ORDERED: ALBU2.5V5 NEB (01:56)
[2018-10-27] MEDS ORDERED: ALBU2.5V8 IH (01:56)
--- NOTE | 2018-10-27 01:57 | PHYS DOC ---
Past Medical History Past Medical History: Asthma, Bronchitis Additional Past Medical Histor: PRIOR MECHANICAL VENT FOR ASTHMA EXACERBATION Past Surgical History: No Surgical History Alcohol Use: None Drug Use: None Adult General Chief Complaint Chief Complaint: SHORTNESS OF BREATH [facility] HPI 23-year-old female with a history of asthma presents with a one to 2 day history of progressive shortness of breath cough and wheezing. She states she has nebulizer machine at home but is out of medication. She states she's had a cough but it's been nonproductive. She denies any hemoptysis. She states it seems very typical of her previous asthma exacerbation. She denies any fever chills or sweats.[] Review of Systems Review of Systems Constitutional: Denies fever or chills [] Eyes: Denies change in visual acuity, redness, or eye pain [] HENT: Denies nasal congestion or sore throat [] Respiratory: Per history of present illness[] Cardiovascular: No additional information not addressed in HPI [] GI: Denies abdominal pain, nausea, vomiting, bloody stools or diarrhea [] : Denies dysuria or hematuria [] Musculoskeletal: Denies back pain or joint pain [] Integument: Denies rash or skin lesions [] Neurologic: Denies headache, focal weakness or sensory changes [] Endocrine: Denies polyuria or polydipsia [] All other systems were reviewed and found to be within normal limits, except as documented in this note. Allergies Allergies Allergies Coded Allergies Type Severity Reaction Last Updated Verified naproxen Allergy Severe CAUSES ASTHMA ATTACK 04/21/18 Yes I S O L A T I O N *CONTACT* Allergy Unknown 08/04/17 Yes Physical Exam Physical Exam Constitutional: Well developed, well nourished, no acute distress, non-toxic appearance. [] HENT: Normocephalic, atraumatic, bilateral external ears normal, oropharynx moist, no oral exudates, nose normal. [] Eyes: PERRLA, EOMI, conjunctiva normal, no discharge. [] Neck: Normal range of motion, no tenderness, supple, no stridor. [] Cardiovascular:Heart rate regular rhythm, no murmur [] Lungs & Thorax: Mild scattered wheezes throughout both lungs no rales[] Abdomen: Bowel sounds normal, soft, no tenderness, no masses, no pulsatile masses. [] Skin: Warm, dry, no erythema, no rash. [] Back: No tenderness, no CVA tenderness. [] Extremities: No tenderness, no cyanosis, no clubbing, ROM intact, no edema. [] Neurologic: Alert and oriented X 3, normal motor function, normal sensory function, no focal deficits noted. [] Psychologic: Affect normal, judgement normal, mood normal. [] EKG EKG [] Radiology/Procedures Radiology/Procedures [] Course & Med Decision Making Course & Med Decision Making Pertinent Labs and Imaging studies reviewed. (See chart for details) [ED course: Evaluation reveals a 23-year-old female with a mild asthma exacerbation. She was given a DuoNeb and 60 mg prednisone by mouth. I will prescribe her nebulized albuterol as well as a metered-dose inhaler and a short course of steroids. Patient is safe for discharge home.] Dragon Disclaimer Dragon Disclaimer This electronic medical record was generated, in whole or in part, using a voice recognition dictation system. Departure Departure Impression: Primary Impression: Asthma exacerbation Disposition: HOME, SELF-CARE Condition: IMPROVED Referrals: NO PCP (PCP) Patient Instructions: Asthma Attacks, Prevention, Asthma, Acute Bronchospasm, Asthma, Adult Additional Instructions: Return to the emergency department with any new or concerning symptoms Scripts Prednisone (PREDNISONE) 20 Mg Tablet 3 TAB PO DAILY PRN for COUGH for 5 Days, #15 TAB Prov: ANAMARIA RUIZ DO 10/27/18 Albuterol Sulfate (ALBUTEROL SULFATE NEB SOLN) 2.5 Mg/3 Ml Vial.neb 1 VIAL NEB PRN Q4HRS, #50 VIAL 6 Refills Prov: ANAMARIA RUIZ DO 10/27/18 Albuterol Sulfate (PROVENTIL HFA INHALER) 6.7 Gm Hfa.aer.ad 2 PUFF IH PRN Q4HRS PRN for FOR ASTHMA, #1 INHALER 0 Refills Prov: ANAMARIA RUIZ DO 10/27/18 Problem Qualifiers Primary Impression: Asthma exacerbation Asthma severity: moderate Asthma persistence: persistent Qualified Codes: J45.41 - Moderate persistent asthma with (acute) exacerbation ANAMARIA RUIZ DO Oct 27, 2018 01:57
[2018-10-27] MEDS ORDERED: IPRATRPIUM/ALBUTEROL 0.5/2.5MG 3 ML NEBU. NEB ONE (02:00)
[2018-10-27] MEDS ORDERED: predniSONE 20 MG TABLET PO ONE (02:00)
== END 2018-10-27 02:05 | disposition home or self-care (01) ==
LOC: ER 01:36
DX: J45.41 Moderate persistent asthma with (acute) exacerbation (principal); Z88.8 Allergy status to other drugs, medicaments and biological substances; Z91.041 Radiographic dye allergy status
CPT/HCPCS: 94640; 99283; J7512; J7620

== ENCOUNTER 2019-02-14 02:38 | Emergency (ER) | payer OTHER ==
[~2019-02-14] VITALS: Ht 165.1 cm; Wt 81.6 kg
[~2019-02-14 02:38] MED LIST changes: +ALBU2.5V8 IH; +MOME13HF IH
[2019-02-14 02:53] VITALS: BP 135/78
[2019-02-14] MEDS ORDERED: ALBUTEROL SULFATE 2.5 MG/3 ML NEBU. NEB ONE (03:00)
[2019-02-14] MEDS ORDERED: AMOXICILLIN 250 MG CAPSULE. PO ONE (03:15)
[2019-02-14] MEDS ORDERED: ALBU2.5V8 INH (03:29)
[2019-02-14] MEDS ORDERED: AMOX500C PO (03:29)
--- NOTE | 2019-02-14 03:29 | PHYS DOC ---
Past Medical History Past Medical History: Asthma Additional Past Medical Histor: PRIOR MECHANICAL VENT FOR ASTHMA EXACERBATION Past Surgical History: No Surgical History Alcohol Use: None Drug Use: None Adult General Chief Complaint Chief Complaint: SHORTNESS OF BREATH [facility] HPI Patient is a 23-year-old female who presents with complaint of dry cough and wheezing that started this morning. Patient indicates that she has a history of asthma and states that she has had shortness of breath throughout the day. Patient states that she is 20 weeks . She denies any chest pain or abdominal pain. She also denies any fever. Patient states that shortness of breath is worsened with exertion. Patient also complains of left ear pain.[] Review of Systems Review of Systems Constitutional: Denies fever or chills [] Respiratory: Complains of cough, wheezing and shortness of breath [] Cardiovascular: No additional information not addressed in HPI [] GI: Denies abdominal pain, nausea, vomiting or diarrhea [] Integument: Denies rash or skin lesions [] Neurologic: Denies headache, focal weakness or sensory changes [] Current Medications Current Medications Current Medications Medications (Trade) Dose Ordered Sig/Felipe Start Time Stop Time Status Last Admin Dose Admin Albuterol Sulfate (Ventolin Neb Soln) 5 mg 1X ONCE 02/14/19 03:00 02/14/19 03:13 DC 02/14/19 02:59 5 MG Amoxicillin (Amoxil) 500 mg 1X ONCE 02/14/19 03:15 02/14/19 03:16 DC 02/14/19 03:21 500 MG Allergies Allergies Allergies Coded Allergies Type Severity Reaction Last Updated Verified naproxen Allergy Severe CAUSES ASTHMA ATTACK 02/14/19 Yes I S O L A T I O N *CONTACT* Allergy Unknown 08/04/17 Yes Physical Exam Physical Exam Constitutional: Well developed, well nourished, no acute distress, non-toxic appearance. [] HENT: Normocephalic, atraumatic, left TM is dull and erythematous[] Neck: Normal range of motion, no tenderness, supple, no stridor. [] Cardiovascular:Heart rate regular rhythm, no murmur [] Lungs & Thorax: Good air movement is noted throughout with both inspiratory next 3 wheezes to auscultation [] Abdomen: Bowel sounds normal, soft, no tenderness. [] Skin: Warm, dry, no erythema, no rash. [] Current Patient Data Vital Signs Vital Signs Date Time Temp Pulse Resp B/P (MAP) Pulse Ox O2 Delivery O2 Flow Rate FiO2 02/14/19 03:00 Room Air 02/14/19 02:53 98.5 105 22 135/78 (97) 100 98.5 EKG EKG [] Radiology/Procedures Radiology/Procedures [] Course & Med Decision Making Course & Med Decision Making Pertinent Labs and Imaging studies reviewed. (See chart for details) [] Dragon Disclaimer Dragon Disclaimer This electronic medical record was generated, in whole or in part, using a voice recognition dictation system. Departure Departure Impression: Primary Impression: Asthma exacerbation Additional Impression: Left otitis media Disposition: HOME, SELF-CARE Condition: STABLE Referrals: NO PCP (PCP) Patient Instructions: Asthma, Adult, Otitis Media, Adult Scripts Albuterol Sulfate (Proair Hfa) 8.5 Gm Hfa.aer.ad 2 PUFF INH PRN Q6HRS PRN for SHORTNESS OF BREATH, #1 INHALER Prov: ARMANDO PATEL Jr. DO 02/14/19 Amoxicillin (AMOXICILLIN) 500 Mg Capsule 2 CAP PO BID, #40 CAP Prov: ARMANDO PATEL Jr. DO 02/14/19 Problem Qualifiers Primary Impression: Asthma exacerbation Asthma severity: unspecified severity Asthma persistence: unspecified Qualified Codes: J45.901 - Unspecified asthma with (acute) exacerbation Additional Impression: Left otitis media Otitis media type: unspecified Qualified Codes: H66.92 - Otitis media, unspecified, left ear ARMANDO PATEL Jr. DO Feb 14, 2019 03:29
[2019-02-14] MEDS ORDERED: ALBU2.5V5 NEB (03:44)
== END 2019-02-14 04:25 | disposition home or self-care (01) ==
LOC: ER 02:38
DX: O99.512 Diseases of the respiratory system complicating pregnancy, second trimester (principal); J45.901 Unspecified asthma with (acute) exacerbation; H66.92 Otitis media, unspecified, left ear; Z3A.20 20 weeks gestation of pregnancy; Z88.5 Allergy status to narcotic agent; Z91.041 Radiographic dye allergy status
CPT/HCPCS: 94640; 99283; J7613

== ENCOUNTER 2019-05-26 08:25 | Observation (INO) | payer MEDICAID ==
[~2019-05-26 08:25] MED LIST changes: -ALBU2.5V8 IH; +AMOX500C PO; +PROVENTIL HFA6.7 GM IH
--- NOTE | 2019-05-26 08:49 | NUR ---
IP: Pt has a hx of + mrsa screen on 08/02/17. Pt to be in contact precautions until a screen is obtained and verified. If +, recommend Nozin/CHG decolonization as well as precautions with pending .
[2019-05-26] MEDS ORDERED: IV RINGERS,LACTATED 1000ML 1,000 ML IV PRN (09:15)
[2019-05-26] MEDS ORDERED: ACETAMINOPHEN 325 MG TABLET. PO PRN (09:15)
[2019-05-26 09:16] LABS: BILIRUBIN,URINE NEGATIVE (NEG); CLARITY,URINE CLEAR; COLOR,URINE YELLOW; NITRITE,URINE NEGATIVE (NEG); PROTEIN,URINE NEGATIVE (NEG-TRACE)
[2019-05-26 09:38] LABS: SQUAMOUS EPITHELIAL CELL,UR MOD /LPF
[2019-05-26 09:39] LABS: BACTERIA,URINE MODERATE /HPF (0-FEW)
[2019-05-26 09:40] LABS: RBC,URINE OCC /HPF (0-2)
[2019-05-26] MEDS ORDERED: hydrOXYzine 25 MG TABLET PO PRN (11:15)
[2019-05-26] MEDS ORDERED: methylPREDNISolone SOD SUCC PF 125 MG/2 ML VIAL. IM ONE (11:15)
[2019-05-26 11:52] LABS: BASO % 0 % (0-3); EOS # 0.8 x10^3/uL (0.0-0.7); EOS % 10 % (0-3); HEMATOCRIT 30.8 % (36.0-47.0); HEMOGLOBIN 10.2 g/dL (12.0-15.5); LYMPH # 2.1 x10^3/uL (1.0-4.8); LYMPH % 25 % (24-48); MEAN CORPUSCULAR HEMOGLOBIN 25 pg (25-35); MEAN CORPUSCULAR HGB CONC 33 g/dL (31-37); MEAN CORPUSCULAR VOLUME 77 fL (79-100); MONO # 0.6 x10^3/uL (0.0-1.1); MONO % 7 % (0-9); NEUT # 4.8 x10^3/uL (1.8-7.7); NEUT % 58 % (31-73); PLATELET COUNT 201 x10^3/uL (140-400); RED BLOOD COUNT 4.01 x10^6/uL (3.50-5.40); RED CELL DISTRIBUTION WIDTH 13.4 % (11.5-14.5); WHITE BLOOD COUNT 8.4 x10^3/uL (4.0-11.0)
[2019-05-26] MEDS ORDERED: ALBUTEROL SULFATE 2.5 MG/3 ML NEBU. NEB PRN (12:00)
[2019-05-26 12:21] LABS: ALBUMIN 2.4 g/dL (3.4-5.0); ALBUMIN/GLOBULIN RATIO 0.7 (1.0-1.7); CREATININE 0.6 mg/dL (0.6-1.0); GFR 148.6; POTASSIUM 3.3 mmol/L (3.5-5.1); TOTAL BILIRUBIN 0.3 mg/dL (0.2-1.0); TOTAL PROTEIN 5.9 g/dL (6.4-8.2)
--- NOTE | 2019-05-26 14:17 | PDOC ---
PULMONARY PROGRESS NOTES General: Alert, No acute distress Lungs: Clear Cardiovascular: S1, S2 Abdomen: Soft Extremities: No Edema Labs Laboratory Tests Test 05/26/19 09:00 05/26/19 11:45 Urine Collection Type Unknown Urine Color Yellow Urine Clarity Clear Urine pH 7.0 Urine Specific [place] <=1.005 Urine Protein Negative mg/dL (NEG-TRACE) Urine Glucose (UA) Negative mg/dL (NEG) Urine Ketones (Stick) Negative mg/dL (NEG) Urine Blood Negative (NEG) Urine Nitrite Negative (NEG) Urine Bilirubin Negative (NEG) Urine Urobilinogen Dipstick 1.0 mg/dL (0.2 mg/dL) Urine Leukocyte Esterase Moderate (NEG) Urine RBC Occ /HPF (0-2) Urine WBC 5-10 /HPF (0-4) Urine Squamous Epithelial Cells Mod /LPF Urine Bacteria Moderate /HPF (0-FEW) Urine Mucus Slight /LPF White Blood Count 8.4 x10^3/uL (4.0-11.0) Red Blood Count 4.01 x10^6/uL (3.50-5.40) Hemoglobin 10.2 g/dL (12.0-15.5) Hematocrit 30.8 % (36.0-47.0) Mean Corpuscular Volume 77 fL (79-100) Mean Corpuscular Hemoglobin 25 pg (25-35) Mean Corpuscular Hemoglobin Concent 33 g/dL (31-37) Red Cell Distribution Width 13.4 % (11.5-14.5) Platelet Count 201 x10^3/uL (140-400) Neutrophils (%) (Auto) 58 % (31-73) Lymphocytes (%) (Auto) 25 % (24-48) Monocytes (%) (Auto) 7 % (0-9) Eosinophils (%) (Auto) 10 % (0-3) Basophils (%) (Auto) 0 % (0-3) Neutrophils # (Auto) 4.8 x10^3/uL (1.8-7.7) Lymphocytes # (Auto) 2.1 x10^3/uL (1.0-4.8) Monocytes # (Auto) 0.6 x10^3/uL (0.0-1.1) Eosinophils # (Auto) 0.8 x10^3/uL (0.0-0.7) Basophils # (Auto) 0.0 x10^3/uL (0.0-0.2) Sodium Level 141 mmol/L (136-145) Potassium Level 3.3 mmol/L (3.5-5.1) Chloride Level 106 mmol/L (98-107) Carbon Dioxide Level 23 mmol/L (21-32) Anion Gap 12 (6-14) Blood Urea Nitrogen 5 mg/dL (7-20) Creatinine 0.6 mg/dL (0.6-1.0) Estimated GFR (Cockcroft-Gault) 148.6 BUN/Creatinine Ratio 8 (6-20) Glucose Level 94 mg/dL (70-99) Calcium Level 8.0 mg/dL (8.5-10.1) Total Bilirubin 0.3 mg/dL (0.2-1.0) Aspartate Amino Transf (AST/SGOT) 14 U/L (15-37) Alanine Aminotransferase (ALT/SGPT) 13 U/L (14-59) Alkaline Phosphatase 140 U/L (46-116) Total Protein 5.9 g/dL (6.4-8.2) Albumin 2.4 g/dL (3.4-5.0) Albumin/Globulin Ratio 0.7 (1.0-1.7) Laboratory Tests Test 05/26/19 09:00 05/26/19 11:45 Urine Collection Type Unknown Urine Color Yellow Urine Clarity Clear Urine pH 7.0 Urine Specific [place] <=1.005 Urine Protein Negative mg/dL (NEG-TRACE) Urine Glucose (UA) Negative mg/dL (NEG) Urine Ketones (Stick) Negative mg/dL (NEG) Urine Blood Negative (NEG) Urine Nitrite Negative (NEG) Urine Bilirubin Negative (NEG) Urine Urobilinogen Dipstick 1.0 mg/dL (0.2 mg/dL) Urine Leukocyte Esterase Moderate (NEG) Urine RBC Occ /HPF (0-2) Urine WBC 5-10 /HPF (0-4) Urine Squamous Epithelial Cells Mod /LPF Urine Bacteria Moderate /HPF (0-FEW) Urine Mucus Slight /LPF White Blood Count 8.4 x10^3/uL (4.0-11.0) Red Blood Count 4.01 x10^6/uL (3.50-5.40) Hemoglobin 10.2 g/dL (12.0-15.5) Hematocrit 30.8 % (36.0-47.0) Mean Corpuscular Volume 77 fL (79-100) Mean Corpuscular Hemoglobin 25 pg (25-35) Mean Corpuscular Hemoglobin Concent 33 g/dL (31-37) Red Cell Distribution Width 13.4 % (11.5-14.5) Platelet Count 201 x10^3/uL (140-400) Neutrophils (%) (Auto) 58 % (31-73) Lymphocytes (%) (Auto) 25 % (24-48) Monocytes (%) (Auto) 7 % (0-9) Eosinophils (%) (Auto) 10 % (0-3) Basophils (%) (Auto) 0 % (0-3) Neutrophils # (Auto) 4.8 x10^3/uL (1.8-7.7) Lymphocytes # (Auto) 2.1 x10^3/uL (1.0-4.8) Monocytes # (Auto) 0.6 x10^3/uL (0.0-1.1) Eosinophils # (Auto) 0.8 x10^3/uL (0.0-0.7) Basophils # (Auto) 0.0 x10^3/uL (0.0-0.2) Sodium Level 141 mmol/L (136-145) Potassium Level 3.3 mmol/L (3.5-5.1) Chloride Level 106 mmol/L (98-107) Carbon Dioxide Level 23 mmol/L (21-32) Anion Gap 12 (6-14) Blood Urea Nitrogen 5 mg/dL (7-20) Creatinine 0.6 mg/dL (0.6-1.0) Estimated GFR (Cockcroft-Gault) 148.6 BUN/Creatinine Ratio 8 (6-20) Glucose Level 94 mg/dL (70-99) Calcium Level 8.0 mg/dL (8.5-10.1) Total Bilirubin 0.3 mg/dL (0.2-1.0) Aspartate Amino Transf (AST/SGOT) 14 U/L (15-37) Alanine Aminotransferase (ALT/SGPT) 13 U/L (14-59) Alkaline Phosphatase 140 U/L (46-116) Total Protein 5.9 g/dL (6.4-8.2) Albumin 2.4 g/dL (3.4-5.0) Albumin/Globulin Ratio 0.7 (1.0-1.7) Medications Active Scripts Medications Dose Route/Sig Max Daily Dose Days Date Category Dose Instructions Albuterol Sulfate Neb Soln (Albuterol Sulfate) 2.5 Mg/3 Ml Vial.neb 1 Vial NEB PRN Q4HRS 02/14/19 Rx Proair Hfa (Albuterol Sulfate) 8.5 Gm Hfa.aer.ad 2 Puff INH PRN Q6HRS PRN 02/14/19 Rx Amoxicillin 500 Mg Capsule 2 Cap PO BID 02/14/19 Rx Proair Hfa Inhaler (Albuterol Sulfate) 8.5 Gm Hfa.aer.ad 1 Puff INH PRN Q6HRS PRN 01/21/19 Rx Dulera 200 Mcg/5 Mcg Inhaler (Mometasone/Formoterol) 13 Gm Hfa.aer.ad 2 Puff IH BID 01/21/19 Rx Prednisone 20 Mg Tablet 3 Tab PO DAILY PRN 5 10/27/18 Rx Albuterol Sulfate Neb Soln (Albuterol Sulfate) 2.5 Mg/3 Ml Vial.neb 1 Vial NEB PRN Q4HRS 10/27/18 Rx Proventil Hfa Inhaler (Albuterol Sulfate) 6.7 Gm Hfa.aer.ad 2 Puff IH PRN Q4HRS PRN 10/27/18 Rx Tablet (Pnv Cmb#95/Ferrous Fumarate/Fa) 1 Each Tablet 1 Tab PO DAILY 10/20/18 Rx Augmentin 875-125 Tablet (Amoxicillin/Potassium Clav) 1 Each Tablet 1 Tab PO BID 10/20/18 Rx Albuterol Sulfate Conc Neb Soln (Albuterol Sulfate) 2.5 Mg/0.5 Ml Vial.neb 1 Vial NEB Q4HRS 10/03/18 Rx Prednisone 20 Mg Tablet 20 Mg PO DAILY 10/03/18 Rx 3 tablets daily for 3 days Then 2 tablets daily for days 4 through 6 Then 1 tablet daily for days 6 through 9 Then one half tablet daily for days 10 TRHOUGH 13 Albuterol Sulfate Conc Neb Soln (Albuterol Sulfate) 2.5 Mg/0.5 Ml Vial.neb 1 Vial NEB Q4HRS 09/12/18 Rx Ventolin Hfa Inhaler (Albuterol Sulfate) 18 Gm Hfa.aer.ad 2 Puff INH Q4HRS 09/12/18 Rx Prednisone 50 Mg Tablet 1 Tab PO DAILY 09/12/18 Rx Proair Hfa Inhaler (Albuterol Sulfate) 8.5 Gm Hfa.aer.ad 1 Puff INH PRN Q6HRS PRN 07/02/18 Rx Albuterol Sulfate Neb Soln (Albuterol Sulfate) 2.5 Mg/3 Ml Vial.neb 1 Vial NEB PRN Q4HRS 07/02/18 Rx Azithromycin Tablet (Azithromycin) 250 Mg Tablet 250 Mg PO DAILY 4 07/02/18 Rx Prednisone 50 Mg Tablet 1 Tab PO DAILY 07/02/18 Rx Zyrtec-D Tablet (Cetirizine Hcl/Pseudoephedrine) 1 Each Tab.er.12h 1 Tab PO BID 04/22/18 Rx Tessalon Perle (Benzonatate) 100 Mg Capsule 1 Cap PO TID 04/22/18 Rx Albuterol Sulfate Neb Soln (Albuterol Sulfate) 1.25 Mg/3 Ml Vial.neb 1 Vial NEB Q4HRS 04/22/18 Rx Prednisone 20 Mg Tablet 2 Tab PO DAILY 04/10/18 Rx Start on Friday04/11/18 Albuterol Sulfate Conc Neb Soln (Albuterol Sulfate) 2.5 Mg/0.5 Ml Vial.neb 1 Vial NEB Q6HRS 04/10/18 Rx Proair Hfa Inhaler (Albuterol Sulfate) 8.5 Gm Hfa.aer.ad 1 Puff INH PRN Q6HRS PRN 04/10/18 Rx Albuterol Sulfate Conc Neb Soln (Albuterol Sulfate) 2.5 Mg/0.5 Ml Vial.neb 1 Vial NEB Q6HRS 12/01/17 Rx Prednisone 50 Mg Tablet 1 Tab PO DAILY 12/01/17 Rx Albuterol Sulfate Neb Soln (Albuterol Sulfate) 2.5 Mg/3 Ml Vial.neb 1 Vial NEB PRN Q4HRS 11/24/17 Rx Proair Hfa Inhaler (Albuterol Sulfate) 8.5 Gm Hfa.aer.ad 1 Puff INH PRN Q6HRS PRN 11/24/17 Rx Prednisone 20 Mg Tablet 2 Tab PO DAILY 5 11/24/17 Rx Proair Hfa Inhaler (Albuterol Sulfate) 8.5 Gm Hfa.aer.ad 1 Puff INH PRN Q6HRS PRN 11/09/17 Rx Albuterol Sulfate Neb Soln (Albuterol Sulfate) 2.5 Mg/3 Ml Vial.neb 1 Vial NEB PRN Q4HRS 11/09/17 Rx Prednisone (Prednisone) 10 Mg Tablet 30 Mg PO DAILY 5 11/09/17 Rx Tessalon Perle (Benzonatate) 100 Mg Capsule 1 Cap PO TID 10/08/17 Rx Proair Hfa Inhaler (Albuterol Sulfate) 8.5 Gm Hfa.aer.ad 1 Puff INH PRN Q6HRS PRN 10/08/17 Rx Albuterol Sulfate Neb Soln (Albuterol Sulfate) 2.5 Mg/3 Ml Vial.neb 1 Vial NEB PRN Q4HRS 10/08/17 Rx Prednisone 50 Mg Tablet 1 Tab PO DAILY 10/08/17 Rx Proair Hfa Inhaler (Albuterol Sulfate) 8.5 Gm Hfa.aer.ad 1 Puff INH PRN Q6HRS PRN 08/09/17 Rx Albuterol Sulfate Neb Soln (Albuterol Sulfate) 2.5 Mg/3 Ml Vial.neb 1 Vial NEB PRN Q4HRS 08/09/17 Rx Azithromycin Tablet (Azithromycin) 250 Mg Tablet 250 Mg PO DAILY 06/28/17 Rx fIRST DOSE GIVEN IN THE ER Prednisone (Prednisone) 10 Mg Tablet 10 Mg PO UD 06/28/17 Rx Take 3 tablets by mouth twice a day for 3 days, then take 2 tablets by mouth twice a day for 3 days, then take 1 tablet by mouth twice a day for 3 days, then take 1 tablet by mouth daily x 3 days, then stop. Duoneb 0.5-3(2.5) Mg/3 Ml (Albuterol/Ipratropium) 3 Ml Ampul.neb 3 Ml NEB QID 30 06/28/17 Rx Proair Hfa Inhaler (Albuterol Sulfate) 8.5 Gm Hfa.aer.ad 1 Puff INH PRN Q6HRS PRN 04/16/17 Rx Prednisone 20 Mg Tablet 40 Mg PO DAILY 7 01/26/17 Rx Prednisone 50 Mg Tablet 1 Tab PO DAILY 01/15/17 Rx Albuterol Sulfate Neb Soln (Albuterol Sulfate) 1.25 Mg/3 Ml Vial.neb 1 Vial NEB Q4HRS 01/15/17 Rx Proair Respiclick (Albuterol Sulfate) 90 Mcg Aer.pow.ba 1 Puff IH PRN Q6HRS PRN 01/15/17 Rx Macrobid 100 Mg Capsule (Nitrofurantoin Monohyd/M-Cryst) 100 Mg Capsule 1 Cap PO BID 01/11/17 Rx next dose AM of 01/12, first dose given in ED afternoon of 01/11 Albuterol Sulfate Neb Soln (Albuterol Sulfate) 0.63 Mg/3 Ml Vial.neb 1 Vial NEB QID 01/04/17 Rx Ventolin Hfa Inhaler (Albuterol Sulfate) 18 Gm Hfa.aer.ad 2 Puff INH Q4HRS 01/04/17 Rx Prednisone 50 Mg Tablet 1 Tab PO DAILY 01/04/17 Rx Proair Respiclick (Albuterol Sulfate) 90 Mcg Aer.pow.ba 1 Puff IH PRN Q6HRS PRN 07/31/16 Rx Prednisone 50 Mg Tablet 1 Tab PO DAILY 07/31/16 Rx Zithromax (Azithromycin) 250 Mg Tablet 1 Pkg PO UD 02/23/16 Rx Claritin (Loratadine) 10 Mg Tablet 10 Mg PO QHS 02/19/16 Rx Take at bedtime. Proair Hfa Inhaler (Albuterol Sulfate) 8.5 Gm Hfa.aer.ad 1 Puff INH PRN Q6HRS PRN 02/19/16 Rx Tessalon Perle (Benzonatate) 100 Mg Capsule 100 Mg PO TID PRN 02/19/16 Rx Impression . NOTE DICTATED WILL NEED FORMAL ALLERGY TESTING AT POST DELIVERY SEE ORDERS PRED, FLONASE AND ZYTERC PRN ALBUTERO THANKS PENELOPE WAYNE MD May 26, 2019 14:17
[2019-05-26] MEDS ORDERED: CETIRIZINE HCL 10 MG TABLET. PO SCH (15:00)
[2019-05-26] MEDS ORDERED: predniSONE 20 MG TABLET PO SCH (15:00)
[2019-05-26] MEDS ORDERED: FLUTICASONE 50MCG/NASAL SPRAY 16GM BOTTLE. NS SCH (15:00)
--- NOTE | 2019-05-27 04:06 | CONS ---
DATE OF CONSULTATION: 05/26/2019 ATTENDING PHYSICIAN: Dr. Willard Ang. REASON FOR CONSULTATION: The patient seen in pulmonary consultation at the request of Dr. Ang for history of asthma. HISTORY OF PRESENT ILLNESS: The patient is a 24-year-old that has been seen twice by our service, once back in 2018. At that time, she had acute respiratory failure and she was on mechanical ventilation for 24 hours. She was also seen back in 2017 for asthma. Her asthma is mostly driven by allergies in the past. She has used albuterol, which seems to help. Currently, she is using albuterol twice a day. She is not waking up in the middle of night with severe shortness of air or coughing. She denies fever, chills or night sweats. When she was not , she was using albuterol on average once or twice per week. PAST MEDICAL HISTORY: Asthma, mostly driven by allergies. She was intubated for 24-48 hours back in 07/2017. She has done well since then. No recent acute exacerbations or ER visits. Otherwise, she is intolerant to Motrin which makes her short of breath. PAST SURGICAL HISTORY: None. ALLERGIES: No known drug allergies. No formal testing. REVIEW OF SYSTEMS: CONSTITUTIONAL: No fever or chills. EYES: No change in visual acuity. HENT: No nasal congestion or sore throat. PULMONARY: As indicated above. CARDIOVASCULAR: No chest pain or pressure. GASTROINTESTINAL: No nausea, vomiting, diarrhea. GENITOURINARY: No dysuria or frequency. MUSCULOSKELETAL: No localized muscle aches or joint pains. SKIN: No new skin rashes. NEUROLOGIC: No headaches, diplopia, or blurred vision. CURRENT MEDICATION: List was reviewed. PHYSICAL EXAMINATION: GENERAL: The patient was in no respiratory distress. VITAL SIGNS: Room air saturation was greater than 92%. HEENT: Eyes, the sclerae were nonicteric. NECK: Jugular venous distention was not elevated. No lymphadenopathy. CHEST: Full expansion. LUNGS: Adequate airway flow with no wheezes. CARDIOVASCULAR: Regular rate and rhythm with S1, S2, no S3. ABDOMEN: Soft, nontender, nondistended. EXTREMITIES: No clubbing, cyanosis, or edema. LABORATORY DATA: Reviewed. White count was normal. Hemoglobin and hematocrit were noted. Eosinophil was high at 10%. Potassium was low. AST and ALT were low. Albumin was low. IMPRESSION: 1. Mild acute exacerbation of asthma. 2. Seasonal allergies. 3. Allergies to nonsteroidals. 4. , 2, para 1. She is currently due in June. 5. Peripheral eosinophilia. PLAN: The patient is doing relatively well with p.r.n. albuterol, I would not add a steroid inhaler due to her . Next, she will be initiated on Flonase nasal spray and Zyrtec. When she delivers, I recommend formal allergy testing. I do appreciate the privilege in sharing in her care. PENELOPE WAYNE MD DR: MADHAVI/warren JOB#: [id number] / [id number]
[2019-05-27] MEDS ORDERED: predniSONE 20 MG TABLET PO ONE ×2 (09:00)
== END 2019-05-26 16:10 | disposition home or self-care (01) ==
LOC: 3 SO LND 08:25
PROVIDERS: ADMIT Specialist; ATTEND Specialist
DX: O99.513 Diseases of the respiratory system complicating pregnancy, third trimester (principal); J45.901 Unspecified asthma with (acute) exacerbation; O26.893 Other specified pregnancy related conditions, third trimester; M54.5 Low back pain; J30.2 Other seasonal allergic rhinitis; D72.1 Eosinophilia; Z3A.33 33 weeks gestation of pregnancy
CPT/HCPCS: 36415; 80053; 81001; 85025; 87086; 87641; 96372; G0378; G0379; J2930; J7120; J7512

== ENCOUNTER 2019-06-30 21:26 | Emergency (ER) | payer MEDICAID ==
[~2019-06-30] VITALS: Ht 167.6 cm; Wt 91.6 kg
[2019-06-30] MEDS ORDERED: ALBUTEROL SULFATE 2.5 MG/3 ML NEBU. NEB ONE (22:30)
[2019-06-30] MEDS ORDERED: ALBU2.5V8 IH (22:58)
[2019-06-30 23:00] VITALS: BP 144/86
--- NOTE | 2019-06-30 23:00 | PHYS DOC ---
Past Medical History Past Medical History: Asthma Additional Past Medical Histor: PRIOR MECHANICAL VENT FOR ASTHMA EXACERBATION Past Surgical History: No Surgical History Alcohol Use: None Drug Use: None Adult General Chief Complaint Chief Complaint: Congestion HPI HPI Patient is a 24 year old AA female, coming by her significant other, who presents to the emergency department with complaints of a cough with white sputum, and nasal congestion for the last 3 days. Patient states she is , her due date is July 102018. Patient denies any abdominal pain, contractions, vaginal bleeding, or irregular vaginal discharge. She denies any fever. Patient states that her head and ears feel full, nasal congestion, increased shortness of breath, wheezing. Patient denies any increased swelling, chest pain, palpitations, nausea, vomiting, or diarrhea. She currently denies pain. All other ROS is neg unless otherwise noted in HPI. Review of Systems Review of Systems See Above Current Medications Current Medications Current Medications Medications (Trade) Dose Ordered Sig/Felipe Start Time Stop Time Status Last Admin Dose Admin Albuterol Sulfate (Ventolin Neb Soln) 2.5 mg 1X ONCE 06/30/19 22:30 06/30/19 22:31 DC 06/30/19 22:39 2.5 MG Allergies Allergies Allergies Coded Allergies Type Severity Reaction Last Updated Verified naproxen Allergy Severe CAUSES ASTHMA ATTACK 02/14/19 Yes I S O L A T I O N *CONTACT* Allergy Unknown 08/04/17 Yes Physical Exam Physical Exam See Above Constitutional: Well developed, well nourished, no acute distress, non-toxic appearance. [] HENT: Normocephalic, atraumatic, bilateral external ears normal, bilateral TMs normal, posterior pharynx congested, oropharynx moist, no oral exudates, nose congested Eyes: PERRLA, EOMI, conjunctiva normal, no discharge. [] Neck: Normal range of motion, no tenderness, supple, no stridor. [] Cardiovascular:Heart rate regular rhythm, no murmur [] Lungs & Thorax: Bilateral breath sounds wheezing throughout upper [place], bilateral lower lobes diminished, no retractions, chest nontender to palpation Skin: Warm, dry, no erythema, no rash. [] Back: No tenderness Extremities: No cyanosis, no clubbing, ROM intact, no edema. [] Neurologic: Alert and oriented X 3, no focal deficits noted. [] Psychologic: Affect normal, judgement normal, mood normal. [] Current Patient Data Vital Signs Vital Signs Date Time Temp Pulse Resp B/P (MAP) Pulse Ox O2 Delivery O2 Flow Rate FiO2 06/30/19 22:42 97 Room Air 06/30/19 21:45 98.6 91 19 139/79 (99) 98.6 EKG EKG [] Radiology/Procedures Radiology/Procedures [] Course & Med Decision Making Course & Med Decision Making Pertinent Labs and Imaging studies reviewed. (See chart for details) Patient is a 24-year-old -[place] mean female who presented to the emergency room with complaints of a cough, congestion, and upper respiratory symptoms for the last 3 days. She was given a breathing treatment of albuterol in the emergency department, her lungs were clear in all [place] following the breathing treatment. Prescription was written for a Pro Air inhaler. Patient was encouraged take banh-hit-dtclotx cough medications that are safe in such as Robitussin. She was encouraged to check with the pharmacist before purchasing an owwc-rvj-auqzlrd cough medication to pick sure that they were okay in . Encouraged patient to follow up with her primary care doctor in 1-2 days for repeat evaluation. Return to the ER if symptoms worsen. pt verbalized an understanding of home care, medications, follow-up, and return to ED instructions and was in agreement with the plan of care. [] Dragon Disclaimer Dragon Disclaimer This electronic medical record was generated, in whole or in part, using a voice recognition dictation system. Departure Departure Impression: Primary Impression: Asthma exacerbation Additional Impression: Upper respiratory infection with cough and congestion Disposition: 01 HOME, SELF-CARE Condition: STABLE Referrals: NO PCP (PCP) Patient Instructions: Asthma, Adult, [id number], Upper Respiratory Infection, Adult, Sayr-[id number] Additional Instructions: Fill prescription(s) and use as directed. Recommend use of a Cool mist humidifier in room at bedtime. Alternate Tylenol or ibuprofen as needed for pain/fever. Increase clear fluids. Avoid airway triggers such as smoke, fragrance, dust, and pollen. May take ngry-yrv-ezsqdju cough suppressants as needed. Follow-up with your primary care doctor in 1-2 days, return to the ER if symptoms worsen. Scripts Albuterol Sulfate (Proair Hfa) 8.5 Gm Hfa.aer.ad 2 PUFF IH PRN Q4-6HRS PRN for wheezing for 21 Days, #1 INHALER 0 Refills Prov: [facility] COORDIN[employer] 06/30/19 Problem Qualifiers Primary Impression: Asthma exacerbation Asthma severity: mild Asthma persistence: intermittent Qualified Codes: J45.21 - Mild intermittent asthma with (acute) exacerbation [facility] CO[employer]IN[facility] Jun 30, 2019 23:00
== END 2019-06-30 23:07 | disposition home or self-care (01) ==
LOC: ER 21:26
DX: O99.513 Diseases of the respiratory system complicating pregnancy, third trimester (principal); J45.21 Mild intermittent asthma with (acute) exacerbation; J06.9 Acute upper respiratory infection, unspecified; Z91.041 Radiographic dye allergy status; Z88.5 Allergy status to narcotic agent; Z3A.38 38 weeks gestation of pregnancy
CPT/HCPCS: 94640; 99283; J7613

== ENCOUNTER 2019-08-13 15:28 | Emergency (ER) | payer MEDICAID ==
[~2019-08-13] VITALS: Ht 167.6 cm; Wt 77.0 kg
[~2019-08-13 15:28] MED LIST changes: +ALBU2.5V8 IH
[2019-08-13 15:50] VITALS: BP 138/97
[2019-08-13] MEDS ORDERED: ALBU1.25 NEB (16:27)
[2019-08-13] MEDS ORDERED: ALBU2.5V8 IH (16:27)
[2019-08-13] MEDS ORDERED: BENZ100C PO (16:27)
--- NOTE | 2019-08-13 16:27 | PHYS DOC ---
Past Medical History Past Medical History: Asthma Additional Past Medical Histor: PRIOR MECHANICAL VENT FOR ASTHMA EXACERBATION Past Surgical History: No Surgical History Alcohol Use: None Drug Use: None Adult General Chief Complaint Chief Complaint: COUGH HPI HPI Patient is a 24 year old female in no significant medical history who presents to the ED today complaining of a productive cough with wheezing, symptoms began 2 weeks ago after she ran out of her inhaler and nebulizer treatments. Denies any fever. She is also complaining of generalized abdominal pain which she's had since she had her vaginal delivery a month ago. She reports she ran out of tramadol and would like a refill. She rates the pain is mild and intermittent. Denies any exacerbating or relieving factors. Review of Systems Review of Systems Constitutional: Denies fever or chills [] Eyes: Denies change in visual acuity, redness, or eye pain [] HENT: Denies nasal congestion or sore throat [] Respiratory: Reports cough and wheezing, denies shortness of breath [] Cardiovascular: No additional information not addressed in HPI [] GI: Reports generalized abdominal pain, denies nausea, vomiting, bloody stools or diarrhea [] : Denies dysuria or hematuria [] Musculoskeletal: Denies back pain or joint pain [] Integument: Denies rash or skin lesions [] Neurologic: Denies headache, focal weakness or sensory changes [] All other systems were reviewed and found to be within normal limits, except as documented in this note. Current Medications Current Medications Current Medications Medications (Trade) Dose Ordered Sig/Felipe Start Time Stop Time Status Last Admin Dose Admin Albuterol/ Ipratropium (Duoneb) 3 ml 1X ONCE 08/13/19 16:30 08/13/19 16:31 08/13/19 16:20 3 ML Allergies Allergies Allergies Coded Allergies Type Severity Reaction Last Updated Verified naproxen Allergy Severe CAUSES ASTHMA ATTACK 02/14/19 Yes I S O L A T I O N *CONTACT* Allergy Unknown 08/04/17 Yes Physical Exam Physical Exam Constitutional: Well developed, well nourished, no acute distress, non-toxic appearance. [] HENT: Normocephalic, atraumatic, bilateral external ears normal, oropharynx moist, no oral exudates, nose normal. [] Eyes: PERRLA, EOMI, conjunctiva normal, no discharge. [] Neck: Normal range of motion, no tenderness, supple, no stridor. [] Cardiovascular:Heart rate regular rhythm, no murmur [] Lungs & Thorax: Bilateral breath sounds clear to auscultation [] Abdomen: Bowel sounds normal, soft, no tenderness, no masses, no pulsatile masses. [] Skin: Warm, dry, no erythema, no rash. [] Back: No tenderness, no CVA tenderness. [] Extremities: No tenderness, no cyanosis, no clubbing, ROM intact, no edema. [] Neurologic: Alert and oriented X 3, normal motor function, normal sensory function, no focal deficits noted. [] Psychologic: Affect normal, judgement normal, mood normal. [] Current Patient Data Vital Signs Vital Signs Date Time Temp Pulse Resp B/P (MAP) Pulse Ox O2 Delivery O2 Flow Rate FiO2 08/13/19 15:50 98.3 79 16 138/97 (111) 97 98.3 EKG EKG [] Radiology/Procedures Radiology/Procedures [] Course & Med Decision Making Course & Med Decision Making Pertinent Labs and Imaging studies reviewed. (See chart for details) This is a 24-year-old female patient presenting to the ED today complaining of cough and wheezing for 2 weeks, patient ran out of her asthma medications including nebulizer treatments and albuterol inhaler. Prescriptions were given in the ED. Patient was also complaining of generalized abdominal pain and requesting a refill of tramadol which she was given a month ago when she had a baby. Informed we do not refill narcotic medications, she needs to call her [facility] for refills. Dragon Disclaimer Dragon Disclaimer This electronic medical record was generated, in whole or in part, using a voice recognition dictation system. Departure Departure Impression: Primary Impression: Asthma exacerbation Additional Impression: Medication refill Disposition: HOME, SELF-CARE Condition: STABLE Referrals: NO PCP (PCP) follow up with your doctor in 1 week Patient Instructions: Asthma, Adult Additional Instructions: You were evaluated in the emergency room for asthma symptoms, take the prescribed medications as ordered. Please contact your [facility] for tramadol refills. We do not refill narcotic medications in the emergency room. Scripts Albuterol Sulfate (ALBUTEROL SULFATE NEB SOLN) 1.25 Mg/3 Ml Vial.neb 1 VIAL NEB Q6HRS, #150 ML Prov: DEBORAH COTO APRN 08/13/19 Benzonatate (TESSALON PERLE) 100 Mg Capsule 1 CAP PO TID, #30 CAP Prov: DEBORAH COTO APRN 08/13/19 Albuterol Sulfate (Proair Hfa) 8.5 Gm Hfa.aer.ad 2 PUFF IH PRN Q4-6HRS PRN for wheezing for 21 Days, #1 INHALER 0 Refills Prov: DEBORAH COTO APRN 08/13/19 Problem Qualifiers Primary Impression: Asthma exacerbation Asthma severity: mild Asthma persistence: intermittent Qualified Codes: J45.21 - Mild intermittent asthma with (acute) exacerbation DEBORAH COTO APRN Aug 13, 2019 16:27
[2019-08-13] MEDS ORDERED: IPRATRPIUM/ALBUTEROL 0.5/2.5MG 3 ML NEBU. NEB ONE (16:30)
== END 2019-08-13 16:32 | disposition home or self-care (01) ==
LOC: ER 15:28
DX: O90.89 Other complications of the puerperium, not elsewhere classified (principal); J45.21 Mild intermittent asthma with (acute) exacerbation; R10.84 Generalized abdominal pain; Z76.0 Encounter for issue of repeat prescription; J45.909 Unspecified asthma, uncomplicated; Z88.6 Allergy status to analgesic agent; Z88.8 Allergy status to other drugs, medicaments and biological substances
CPT/HCPCS: 94640; 99283; J7620

== ENCOUNTER 2019-08-15 19:36 | Emergency (ER) | payer MEDICAID ==
[~2019-08-15] VITALS: Ht 167.6 cm; Wt 77.0 kg
[2019-08-15] MEDS ORDERED: ALBUTEROL SULFATE 2.5 MG/3 ML NEBU. CONT NEB ONE (20:00)
[2019-08-15] MEDS ORDERED: IPRATRPIUM/ALBUTEROL 0.5/2.5MG 3 ML NEBU. NEB ONE (20:00)
[2019-08-15 20:14] LABS: BASO % 1 % (0-3); EOS # 1.5 x10^3/uL (0.0-0.7); EOS % 21 % (0-3); HEMATOCRIT 40.2 % (36.0-47.0); HEMOGLOBIN 12.9 g/dL (12.0-15.5); LYMPH # 2.4 x10^3/uL (1.0-4.8); LYMPH % 32 % (24-48); MEAN CORPUSCULAR HEMOGLOBIN 25 pg (25-35); MEAN CORPUSCULAR HGB CONC 32 g/dL (31-37); MEAN CORPUSCULAR VOLUME 77 fL (79-100); MONO # 0.3 x10^3/uL (0.0-1.1); MONO % 4 % (0-9); NEUT # 3.1 x10^3/uL (1.8-7.7); NEUT % 43 % (31-73); PLATELET COUNT 286 x10^3/uL (140-400); RED BLOOD COUNT 5.26 x10^6/uL (3.50-5.40); RED CELL DISTRIBUTION WIDTH 14.8 % (11.5-14.5); WHITE BLOOD COUNT 7.4 x10^3/uL (4.0-11.0)
[2019-08-15 20:21] LABS: CALCIUM 8.7 mg/dL (8.5-10.1); CREATININE 0.8 mg/dL (0.6-1.0); GFR 106.6; POTASSIUM 3.6 mmol/L (3.5-5.1)
--- NOTE | 2019-08-15 20:24 | RAD ---
Exam: Chest one view INDICATION: Dyspnea TECHNIQUE: Frontal view of the chest Comparisons: 09/12/2018 FINDINGS: The cardiomediastinal silhouette and pulmonary vessels are within normal limits. Patchy airspace disease at the right lung base. No pleural effusion. IMPRESSION: Patchy airspace disease at the right lung base, may represent infectious or inflammatory process. Follow-up imaging posttreatment to ensure resolution is recommended. Electronically signed by: Alyson Taylor MD (08/15/2019 8:21 PM) [facility]
[2019-08-15 20:26] LABS: ALBUMIN 3.4 g/dL (3.4-5.0); ALBUMIN/GLOBULIN RATIO 0.9 (1.0-1.7); TOTAL BILIRUBIN 0.4 mg/dL (0.2-1.0)
[2019-08-15 20:34] LABS: % EOS 14 % (0-5); % LYMPHS 36 % (24-48); % MONOS 4 % (0-10); % SEGS 46 % (35-66); HYPOCHROMIA SLIGHT; MICROCYTOSIS SLIGHT; PLT ESTIMATE ADEQUATE (ADEQUATE)
--- NOTE | 2019-08-15 20:36 | PHYS DOC ---
Past Medical History Past Medical History: Asthma Additional Past Medical Histor: PRIOR MECHANICAL VENT FOR ASTHMA EXACERBATION Past Surgical History: No Surgical History Alcohol Use: None Drug Use: None Adult General Chief Complaint Chief Complaint: SHORTNESS OF BREATH [facility] HPI Patient is a 24 year old female who presents via EMS with report of shortness of breath. Patient given a DuoNeb treatment while in route. Patient also indicates that she has taken a couple of breathing treatments at home without relief. Patient was seen here yesterday for same complaint. She states that she has been coughing a lot and she is getting sore in her chest from the coughing. She denies any fever. She denies any nausea or vomiting. Patient states that shortness of breath is worsened with exertion. She denies any lower extremity swelling or pain.[] Review of Systems Review of Systems Constitutional: Denies fever or chills [] Respiratory: As of cough, wheezing and shortness of breath [] Cardiovascular: No additional information not addressed in HPI [] Integument: Denies rash or skin lesions [] Neurologic: Denies headache, focal weakness or sensory changes [] All other systems were reviewed and found to be within normal limits, except as documented in this note. Current Medications Current Medications Current Medications Medications (Trade) Dose Ordered Sig/Felipe Start Time Stop Time Status Last Admin Dose Admin Albuterol Sulfate (Ventolin Neb Soln) 7.5 mg 1X ONCE 08/15/19 20:00 08/15/19 20:01 DC 08/15/19 19:57 7.5 MG Albuterol/ Ipratropium (Duoneb) 3 ml 1X ONCE 08/15/19 20:00 08/15/19 20:01 DC 08/15/19 19:57 3 ML Allergies Allergies Allergies Coded Allergies Type Severity Reaction Last Updated Verified naproxen Allergy Severe CAUSES ASTHMA ATTACK 02/14/19 Yes I S O L A T I O N *CONTACT* Allergy Unknown 08/04/17 Yes Physical Exam Physical Exam Constitutional: Well developed, well nourished, no acute distress, non-toxic appearance. [] HENT: Normocephalic, atraumatic, bilateral external ears normal, oropharynx moist, no oral exudates, nose normal. [] Eyes: PERRLA, EOMI, conjunctiva normal, no discharge. [] Neck: Normal range of motion, no tenderness, supple, no stridor. [] Cardiovascular: Regular rate and rhythm[] Lungs & Thorax: Fairly good air movement is noted throughout with coarse inspiratory and expiratory wheezes to auscultation [] Abdomen: Bowel sounds normal, soft, no tenderness. [] Skin: Warm, dry, no erythema, no rash. [] Extremities: No tenderness, no cyanosis, no clubbing, ROM intact. [] Neurologic: Alert and oriented X 3, no focal deficits noted. [] Current Patient Data Vital Signs Vital Signs Date Time Temp Pulse Resp B/P (MAP) Pulse Ox O2 Delivery O2 Flow Rate FiO2 08/15/19 21:30 84 123/76 (92) 99 08/15/19 19:57 Room Air 08/15/19 19:46 99.1 22 99.1 Lab Values Laboratory Tests Test 08/15/19 20:00 White Blood Count 7.4 x10^3/uL (4.0-11.0) Red Blood Count 5.26 x10^6/uL (3.50-5.40) Hemoglobin 12.9 g/dL (12.0-15.5) Hematocrit 40.2 % (36.0-47.0) Mean Corpuscular Volume 77 fL (79-100) L Mean Corpuscular Hemoglobin 25 pg (25-35) Mean Corpuscular Hemoglobin Concent 32 g/dL (31-37) Red Cell Distribution Width 14.8 % (11.5-14.5) H Platelet Count 286 x10^3/uL (140-400) Neutrophils (%) (Auto) 43 % (31-73) Lymphocytes (%) (Auto) 32 % (24-48) Monocytes (%) (Auto) 4 % (0-9) Eosinophils (%) (Auto) 21 % (0-3) H Basophils (%) (Auto) 1 % (0-3) Neutrophils # (Auto) 3.1 x10^3/uL (1.8-7.7) Lymphocytes # (Auto) 2.4 x10^3/uL (1.0-4.8) Monocytes # (Auto) 0.3 x10^3/uL (0.0-1.1) Eosinophils # (Auto) 1.5 x10^3/uL (0.0-0.7) H Basophils # (Auto) 0.0 x10^3/uL (0.0-0.2) Segmented Neutrophils % 46 % (35-66) Lymphocytes % 36 % (24-48) Monocytes % 4 % (0-10) Eosinophils % 14 % (0-5) H Platelet Estimate Adequate (ADEQUATE) Hypochromasia Slight Microcytosis Slight Sodium Level 143 mmol/L (136-145) Potassium Level 3.6 mmol/L (3.5-5.1) Chloride Level 106 mmol/L (98-107) Carbon Dioxide Level 27 mmol/L (21-32) Anion Gap 10 (6-14) Blood Urea Nitrogen 9 mg/dL (7-20) Creatinine 0.8 mg/dL (0.6-1.0) Estimated GFR (Cockcroft-Gault) 106.6 BUN/Creatinine Ratio 11 (6-20) Glucose Level 85 mg/dL (70-99) Calcium Level 8.7 mg/dL (8.5-10.1) Total Bilirubin 0.4 mg/dL (0.2-1.0) Aspartate Amino Transferase (AST) 13 U/L (15-37) L Alanine Aminotransferase (ALT) 14 U/L (14-59) Alkaline Phosphatase 96 U/L (46-116) Total Protein 7.0 g/dL (6.4-8.2) Albumin 3.4 g/dL (3.4-5.0) Albumin/Globulin Ratio 0.9 (1.0-1.7) L Laboratory Tests 08/15/19 20:00 Laboratory Tests 08/15/19 20:00 EKG EKG [] Radiology/Procedures Radiology/Procedures [] Impressions: PROCEDURE: PORTABLE CHEST 1V Exam: Chest one view INDICATION: Dyspnea TECHNIQUE: Frontal view of the chest Comparisons: 09/12/2018 FINDINGS: The cardiomediastinal silhouette and pulmonary vessels are within normal limits. Patchy airspace disease at the right lung base. No pleural effusion. IMPRESSION: Patchy airspace disease at the right lung base, may represent infectious or inflammatory process. Follow-up imaging posttreatment to ensure resolution is recommended. Electronically signed by: Alyson Taylor MD (08/15/2019 8:21 PM) [facility] Course & Med Decision Making Course & Med Decision Making Pertinent Labs and Imaging studies reviewed. (See chart for details) [] Dragon Disclaimer Dragon Disclaimer This electronic medical record was generated, in whole or in part, using a voice recognition dictation system. Departure Departure Impression: Primary Impression: Asthma exacerbation Disposition: HOME, SELF-CARE Condition: STABLE Referrals: NO PCP (PCP) Patient Instructions: Asthma, Adult Scripts Azithromycin (ZITHROMAX) 250 Mg Tablet 1 PKG PO UD, #6 TAB Prov: ARMANDO PATEL Jr. DO 08/15/19 Methylprednisolone (MEDROL) 4 Mg Tab.ds.pk 1 PKG PO UD, #1 PKG Prov: ARMANDO PATEL Jr. DO 08/15/19 Problem Qualifiers Primary Impression: Asthma exacerbation Asthma severity: unspecified severity Asthma persistence: unspecified Qualified Codes: J45.901 - Unspecified asthma with (acute) exacerbation ARMANDO PATEL Jr. DO Aug 15, 2019 20:36
[2019-08-15 21:30] VITALS: BP 123/76
[2019-08-15] MEDS ORDERED: AZIT250T PO (21:34)
[2019-08-15] MEDS ORDERED: METH4TAB2 PO (21:34)
== END 2019-08-15 21:57 | disposition home or self-care (01) ==
LOC: ER 19:36
DX: J45.901 Unspecified asthma with (acute) exacerbation (principal); Z88.5 Allergy status to narcotic agent; Z91.041 Radiographic dye allergy status
CPT/HCPCS: 36415; 71045; 80053; 85007; 85025; 94640; 99285; J7613; J7620; 94644

== ENCOUNTER 2020-11-14 11:36 | Emergency (ER) | payer SELFPAY ==
[~2020-11-14] VITALS: Ht 167.6 cm; Wt 72.0 kg
[~2020-11-14 11:36] MED LIST changes: +METH4TAB2 PO
[2020-11-14] MEDS ORDERED: ALBU2.5V5 NEB (12:51)
[2020-11-14] MEDS ORDERED: PRED20TA PO (12:51)
[2020-11-14] MEDS ORDERED: FLUT16SP NS (12:51)
--- NOTE | 2020-11-14 12:51 | ED.ADGEN ---
Past Medical History Past Medical History: Asthma Additional Past Medical Histor: PRIOR MECHANICAL VENT FOR ASTHMA EXACERBATION Past Surgical History: No Surgical History Smoking Status: Never Smoker Alcohol Use: None Drug Use: None General Adult EDM: Chief Complaint: ASTHMA HPI: HPI: Patient is a 25 year old AA female who presents emergency department with complaints of asthma problems for about the last week. Patient states she has had a runny nose, nasal congestion, dry cough, and wheezing for the last week. She was seen at her primary care doctor's office 3 days ago and given a prescription for steroids but she is not able to afford them due to lack of insu gomez. She denies any fever, nausea, vomiting, diarrhea, body aches, fatigue, chest pain, or palpitations. Patient reports she has been using her albuterol inhaler frequently and she is out of her albuterol nebulizer solution. She currently denies any pain. Review of Systems: Review of Systems: Complete ROS is negative unless otherwise noted in HPI. Current Medications: Current Medications Medications (Trade) Dose Ordered Sig/Felipe Start Time Stop Time Status Last Admin Dose Admin Dexamethasone Sodium Phosphate (Decadron) 10 mg 1X ONCE 11/14/20 13:00 11/14/20 13:01 DC 11/14/20 13:27 10 MG Allergies: Allergies: Allergies Coded Allergies Type Severity Reaction Last Updated Verified naproxen Allergy Severe CAUSES ASTHMA ATTACK 02/14/19 Yes I S O L A T I O N *CONTACT* Allergy Unknown 08/04/17 Yes Physical Exam: PE: See Above Constitutional: Well developed, well nourished, no acute distress, non-toxic appearance. [] HENT: Normocephalic, atraumatic, bilateral external ears normal, nose congested with swollen turbinates and erythema bilaterally Eyes: PERRLA, EOMI, conjunctiva normal, no discharge. [] Neck: Normal range of motion, supple, nontender, no stridor. [] Cardiovascular:Heart rate regular rhythm Lungs & Thorax: Respirations even and unlabored, no retractions, no respiratory distress, lung sounds clear with scattered expiratory wheeze, no retractions Skin: Warm, dry, no erythema, no rash. [] Extremities: No cyanosis, ROM intact, no edema. [] Neurologic: Alert and oriented X 3, no focal deficits noted. [] Psychologic: Affect normal, judgement normal, mood normal. [] Current Patient Data: Vital Signs: Vital Signs Date Time Temp Pulse Resp B/P (MAP) Pulse Ox O2 Delivery O2 Flow Rate FiO2 11/14/20 13:32 98.6 95 16 134/96 (109) 96 Room Air 98.6 EKG: EKG: [] Heart Score: C/O Chest Pain: No Risk Scores: Score 0 - 3: 2.5% MACE over next 6 weeks - Discharge Home Score 4 - 6: 20.3% MACE over next 6 weeks - Admit for Clinical Observation Score 7 - 10: 72.7% MACE over next 6 weeks - Early Invasive Strategies Radiology/Procedures: Radiology/Procedures: [] Course & Med Decision Making: Course & Med Decision Making Pertinent Labs and Imaging studies reviewed. (See chart for details) [] Dragon Disclaimer: Dragon Disclaimer: This electronic medical record was generated, in whole or in part, using a voice recognition dictation system. Departure Departure Impression: Primary Impression: Acute exacerbation of asthma with allergic rhinitis Disposition: HOME / SELF CARE / HOMELESS Condition: STABLE Referrals: NO PCP (PCP) Patient Instructions: Allergic Rhinitis, Asthma Attacks, Prevention, Asthma, Adult, [id number] Additional Instructions: Fill the prescription(s) and use as directed. Take the Zyrtec at nighttime and use the Flonase (fluticasone) nasal spray 2 sprays each nostril once daily in the morning. You may take Tylenol or ibuprofen as needed for pain/fever. Increase clear fluids. Avoid triggers such as smoke, fragrance, dust, and pollen. You may take OTC cough suppressants such as Mucinex as needed. Follow-up with your primary care doctor if symptoms persist, return to the ER if symptoms worsen. Scripts Albuterol Sulfate (ALBUTEROL SULFATE NEB SOLN) 2.5 Mg/3 Ml Vial.neb 1 VIAL NEB PRN Q4HRS PRN for WHEEZING for 30 Days, #50 VIAL 1 Refill Prov: DICKSON CAMERON APRN 11/14/20 Fluticasone Propionate (FLUTICASONE PROPIONATE NASAL SPRAY) 16 Gm [place].susp 2 SPRAY NS DAILY for 30 Days, #1 INHALER 0 Refills in the morning, be sure to drink water or rinse mouth after taking medication Prov: DICKSON CAMERON APRN 11/14/20 Prednisone (PREDNISONE) 20 Mg Tablet 2 TAB PO DAILY for 5 Days, #10 TAB 0 Refills Prov: DICKSON CAMERON APRN 11/14/20 Attending Signature Attending Signature I have participated in the care of this patient and I have reviewed and agree with all pertinent clinical information above including history, exam, and recommendations. DICKSON CAMERON APRN Nov 14, 2020 12:51 JERICHO SIMMONS MD Nov 14, 2020 18:24
[2020-11-14] MEDS ORDERED: DEXAMETHASONE SOD PHOS 20 MG/5 ML VIAL. PO ONE (13:00)
[2020-11-14 13:32] VITALS: BP 134/96
== END 2020-11-14 13:37 | disposition home or self-care (01) ==
LOC: ER 11:36
DX: J45.901 Unspecified asthma with (acute) exacerbation (principal); R09.89 Other specified symptoms and signs involving the circulatory and respiratory systems; R09.81 Nasal congestion; R05 Cough; Z98.890 Other specified postprocedural states; Z88.8 Allergy status to other drugs, medicaments and biological substances
CPT/HCPCS: 99283; J1100